=== PATIENT | male | born 1965 | race Caucasian/White ===

== ENCOUNTER 2017-07-05 21:02 | Inpatient (IN) | payer BC ==
[2017-07-05 21:51] LABS: ABS Basophils 0.2 10^3/ul (0-0.2); ABS Eosinophils 0.4 10^3/ul (0-0.6); ABS Monocytes 2.2 10^3/ul (0-0.8); ABS Neutrophils 16.8 10^3/ul (1.5-7.7); ABS Nucleated RBC 0.01 10^3/ul; Eosinophil % 1.7 % (0-6); Hematocrit 42 % (42-52); Hemoglobin 14.8 g/dl (14.0-18.0); Lymphocyte % 16.9 % (25-47); Mean Corpuscular HGB Conc 36 g/dl (31-36); Mean Corpuscular Hemoglobin 30 pg (27-31); Mean Corpuscular Volume 85 fL (80-94); Mean Platelet Volume 7 um3 (7.4-10.4); Nucleated Red Blood Cells % 0.1; Platelet Count 514 10^3/ul (150-450); Red Blood Count 4.91 10^6/ul (4.0-5.4); Red Cell Distribution Width 14 % (10.5-15); White Blood Count 23.7 10^3/ul (3.5-10.8)
[2017-07-06] MEDS ORDERED: Ondansetron INJ* 2 MG/ML VIAL IV ONE ×3 (00:04→00:17)
[2017-07-06] MEDS ORDERED: HYDROmorphone INJ* 2 MG/ML CARPUJECT SYRINGE IV SLOW PU ONE ×2 (00:04→01:46)
[2017-07-06] MEDS ORDERED: NS 0.9% 1000 ML* 2,000 ML IV ONE (00:09)
[2017-07-06] MEDS ORDERED: Levofloxacin 750 MG IVPREMIX(* 750 MG/150 ML BAG IVPB ONE (00:11)
[2017-07-06] MEDS ORDERED: metroNIDAZOLE IV 500 MG/100ML* 500 MG/100 ML BAG IVPB ONE (00:12)
[2017-07-06] MEDS ORDERED: Iodixanol* (CONTRAST) 320 MG/ML 100 ML SDV IV ONE (01:31)
[2017-07-06] MEDS ORDERED: Potassium Chlor TAB* 20 MEQ TAB.ER PO ONE (01:47)
[2017-07-06] MEDS ORDERED: HYDROmorphone INJ* 1 MG/ML CARPUJECT SYRINGE ONE (01:48)
[2017-07-06] MEDS ORDERED: HYDROmorphone INJ* 1 MG/ML CARPUJECT SYRINGE IV SLOW PU ONE (01:49)
[2017-07-06] MEDS ORDERED: Metoclopramide IV* 5 MG/ML 2 ML VIAL IV SLOW PU ONE (02:01)
[2017-07-06] MEDS ORDERED: diPHENhydraMINE IV* 50 MG/ML 1 ml VIAL (BENADRYL) IV ONE (02:01)
[2017-07-06] MEDS ORDERED: diPHENhydraMINE IV* 50 MG/ML 1 ml VIAL (BENADRYL) ONE (02:02)
[2017-07-06] MEDS ORDERED: Metoclopramide IV* 5 MG/ML 2 ML VIAL ONE (02:02)
[2017-07-06] MEDS: HYDROmorphone PCA* 20 MG/20 ML PCA.SYRING PCA SCH (04:08)
--- NOTE | 2017-07-06 04:29 | ED ---
Darrian Nuno Gabriel, scribed for Yuliana Garsia MD on 07/06/17 at 0011 . Abdominal Pain/Male - HPI Summary HPI Summary: This patient is a 52 year old M presenting to [facility] accompanied by his twin brother with a chief complaint of ABD pain since 2 days ago that is worse tonight. The patient rates the pain 10/10 in severity. Symptoms aggravated by movement. Patient reports n/v. Patient states he has had no urine output for 2 hours. His blood glucose is 231. - History of Current Complaint Chief Complaint: EDAbdPain Stated Complaint: ABD PAIN Time Seen by Provider: 07/05/17 23:55 Hx Obtained From: Patient Onset/Duration: Lasting Days - 2, Still Present Timing: Constant Severity Initially: Severe Severity Currently: Severe Pain Intensity: 10 Pain Scale Used: 0-10 Numeric Location: Diffuse Radiates: No - Allergies/Home Medications Allergies/Adverse Reactions: Allergies Allergy/AdvReac Type Severity Reaction Status Date / Time Penicillins Allergy Unknown Verified 07/05/17 21:31 Reaction Details PMH/Surg Hx/FS Hx/Imm Hx Respiratory History: Denies: Hx Chronic Obstructive Pulmonary Disease (COPD) GI History: Denies: Hx Cirrhosis History: Denies: Hx Acute Renal Failure Musculoskeletal History: Denies: Hx Arthritis Sensory History: Reports: Hx Contacts or Glasses Opthamlomology History: Reports: Hx Contacts or Glasses Neurological History: Denies: Hx CVA, Hx Dementia Infectious Disease History: No Infectious Disease History: Denies: Traveled Outside the [place] in Last 30 Days - Family History Known Family History: Negative: Hypertension Review of Systems Negative: Fever Positive: Abdominal Pain, Vomiting, Nausea Negative: Slurred Speech All Other Systems Reviewed And Are Negative: Yes Physical Exam - Summary Physical Exam Summary: VITAL SIGNS: Reviewed. GENERAL: Patient is a well-developed and nourished male who is lying comfortable in the stretcher. Patient is not in any acute respiratory distress. HEAD AND FACE: No signs of trauma. No ecchymosis, hematomas or skull depressions. No sinus tenderness. EYES: PERRLA, EOMI x 2, No injected conjunctiva, no nystagmus. EARS: Hearing grossly intact. Ear canals and tympanic membranes are within normal limits. MOUTH: Oropharynx within normal limits. NECK: Supple, trachea is midline, no adenopathy, no JVD, no carotid bruit, no c- spine tenderness, neck with full ROM. CHEST: Symmetric, no tenderness at palpation LUNGS: Clear to auscultation bilaterally. No wheezing or crackles. CVS: Regular rate and rhythm, S1 and S2 present, no murmurs or gallops appreciated. ABDOMEN: Soft, diffuse abdominal tednerness. No signs of distention. No rebound no guarding, and no masses palpated. Bowel sounds are normal. EXTREMITIES: FROM in all major joints, no edema, no cyanosis or clubbing. NEURO: Alert and oriented x 3. No acute neurological deficits. Speech is normal and follows commands. SKIN: Dry and warm Triage Information Reviewed: Yes Vital Signs On Initial Exam: Initial Vitals Temp Pulse Resp BP Pulse Ox 97.6 F 88 20 167/96 96 07/05/17 21:25 07/05/17 21:25 07/05/17 21:25 07/05/17 21:25 07/05/17 21:25 Vital Signs Reviewed: Yes Diagnostics - Vital Signs Vital Signs Temp Pulse Resp BP Pulse Ox 07/05/17 23:25 97.4 F 86 20 155/100 100 07/05/17 21:25 97.6 F 88 20 167/96 96 - Laboratory Lab Results: Lab Results 07/05/17 07/05/17 07/05/17 Range/Units 21:30 21:37 21:37 WBC 23.7 H (3.5-10.8) 10^3/ul RBC 4.91 (4.0-5.4) 10^6/ul Hgb 14.8 (14.0-18.0) g/dl Hct 42 (42-52) % MCV 85 (80-94) fL MCH 30 (27-31) pg MCHC 36 (31-36) g/dl RDW 14 (10.5-15) % Plt Count 514 H (150-450) 10^3/ul MPV 7 L (7.4-10.4) um3 Neut % (Auto) 71.1 (38-83) % Lymph % (Auto) 16.9 L (25-47) % [place] % (Auto) 9.3 H (1-9) % Eos % (Auto) 1.7 (0-6) % Baso % (Auto) 1.0 (0-2) % Absolute Neuts (auto) 16.8 H (1.5-7.7) 10^3/ul Absolute Lymphs (auto) 4.0 (1.0-4.8) 10^3/ul Absolute Monos (auto) 2.2 H (0-0.8) 10^3/ul Absolute Eos (auto) 0.4 (0-0.6) 10^3/ul Absolute Basos (auto) 0.2 (0-0.2) 10^3/ul Absolute Nucleated RBC 0.01 10^3/ul Nucleated RBC % 0.1 Sodium 134 (133-145) mmol/L Potassium 3.2 L (3.5-5.0) mmol/L Chloride 98 L (101-111) mmol/L Carbon Dioxide 25 (22-32) mmol/L Anion Gap 11 (2-11) mmol/L BUN 26 H (6-24) mg/dL Creatinine 1.15 (0.67-1.17) mg/dL Est GFR ( Amer) 86.2 (>60) Est GFR (Non-Af Amer) 67.0 (>60) BUN/Creatinine Ratio 22.6 H (8-20) Glucose 249 H (70-100) mg/dL POC Glucose (mg/dL) 231 H (70-100) mg/dL Calcium 9.6 (8.6-10.3) mg/dL Total Bilirubin 0.30 (0.2-1.0) mg/dL AST 26 (13-39) U/L ALT 35 (7-52) U/L Alkaline Phosphatase 89 (34-104) U/L C-Reactive Protein 17.79 H (< 5.00) mg/L Total Protein 7.1 (6.4-8.9) g/dL Albumin 4.5 (3.2-5.2) g/dL Globulin 2.6 (2-4) g/dL Albumin/Globulin Ratio 1.7 (1-3) Lipase 4162 H (11.0-82.0) U/L Result Diagrams: 07/05/17 21:37 07/05/17 21:37 Lab Statement: Any lab studies that have been ordered have been reviewed, and results considered in the medical decision making process. - Radiology CXR Radiology Interpretation Completed By: ED Physician - no acute disease - CT CT ABD/Pelvis CT Interpretation Completed By: Radiologist - retroperitoneal edema and pelvic fluid possibly related to pancreatitis or enteritis. Correlation with laboratory values associated with pancreatitis is recommended. ED physician has reviewed this report Abdominal Pain Fem Course/Dx - Course Assessment/Plan: This patient is a 52 year old M presenting to [facility] accompanied by his twin brother with a chief complaint of ABD pain since 2 days ago that is worse tonight. The patient rates the pain 10/10 in severity. Symptoms aggravated by movement. Patient reports n/v. Patient states he has had no urine output for 2 hours. His blood glucose is 231. CXR reveals no acute disease. CT ABD pelvis retroperitoneal edema and pelvic fluid possibly related to pancreatitis or enteritis. Correlation with laboratory values associated with pancreatitis is recommended. Test results with no significant abnormalities. We discussed patient care with Dr. Mari and he has agreed to admit the patient. The patient is agreeable with this plan. - Diagnoses Provider Diagnoses: Pancreatitis - Provider Notifications Discussed Care Of Patient With: Deshawn Mari Time Discussed With Above Provider: 04:15 Instructed by Provider To: Admit As Inpatient Discharge - Discharge Plan Condition: Fair Disposition: ADMITTED TO [facility] The documentation as recorded by the Darrian hernandez Gabriel accurately reflects the service I personally performed and the decisions made by , Yuliana Garsia MD.
[2017-07-06 05:20] LABS: Urine Appearance Clear; Urine Blood 1+ (Negative); Urine Color Yellow; Urine Ketones 1+ (Negative); Urine Protein 2+(100 mg/dL) (Negative); Urine Specific Gravity 1.054 (1.010-1.030); Urine Urobilinogen Negative (Negative)
[2017-07-06] MEDS ORDERED: Acetaminophen SUPP* 650 MG SUPP PR PRN (05:49)
[2017-07-06] MEDS ORDERED: LORazepam INJ* 2 MG/ML 1 ML VIAL IV PRN (05:54)
[2017-07-06] MEDS ORDERED: hydrALAZINE IV* 20 MG/ML VIAL IV PRN (05:54)
--- NOTE | 2017-07-06 05:56 | HP ---
H&P (Free Text) History and Physical: PCP: Vicky Joe MD Date/Time: 07/06/2017 0050 CC: abdominal pain HPI: Mr Blandon is a 52YO obese male HX DM2, HTN, & HLD presenting with onset of mild LUQ pain ('twinge') 3 days ago which persisted, rapidly becoming severe focused in the epigastrum yesterday evening around 2030 prompting presentation for evaluation. Yesterday he also developed diarrhea in the morning which has since resolved. This evening he developed N/V. There has been no black/bloody content to either emesis or stool. He has had some SOB and sweats, but no chest pain, F/C, cough, congestion, change in activity/habits, or other issues. Pain is increased with movement, deep inspiration, & palpation. IV pain meds have helped some. Evaluation is notable for a lipase >4k & CT findings consistent with acute pancreatitis. He denies alcohol consumption. PMedHx DM2 HTN HLD ADD GERD bipolar depression Ambulatory Orders Nursing to reconcile. Amphetamine MIXED SALTS TAB* [Adderall TAB*] 10 mg PO DAILY 09/27/14 Aspirin Low Dose CHEW TAB* [Aspirin Low Dose TAB*] 81 mg PO DAILY 09/27/14 Dextroamphetamine (NF) TAB [Dexedrine TAB*] 5 mg PO 09/27/[address] TAB(*) [Bonilla TIAN(*)] 500 mg PO BID 09/27/[address] TAB(*) [[place]illa TIAN(*)] 500 mg PO BID 09/27/14 Hydrochlorothiazide TAB* [Hydrodiuril TAB*] 25 mg PO DAILY 09/27/14 Lisinopril TAB* [Prinivil TAB*] 40 mg PO DAILY 09/27/14 Naproxen Sodium [Aleve] 220 mg PO Q12HR PRN 09/27/14 Omeprazole CAP* [PriLOSEC CAP*] 40 mg PO QAM 09/27/14 Pen [place] 31GX5/16" 31G X 8 mm 09/27/14 Pravastatin (NF) [Pravachol (NF)] 40 mg PO BEDTIME 09/27/14 Sertraline* [Zoloft*] 25 mg PO DAILY 09/27/14 Sertraline* [Zoloft*] 100 mg PO DAILY 09/27/14 SitaGLIPtin (NF) [Januvia (NF)] 100 mg PO DAILY 09/27/14 Zolpidem TAB* [Ambien TAB*] 10 mg PO BEDTIME PRN 09/27/14 amLODIPine TAB* [Norvasc TAB*] 10 mg PO DAILY 09/27/14 metFORMIN* [Glucophage*] 1,000 mg PO 0800,1700 09/27/14 zzInsulin GLARGINE(*) [Lantus(*)] 62 units SUBCUT QAM 09/27/14 Allergies Penicillins Allergy (Verified 07/05/17 21:31) Unknown Reaction Details PSurgHx denies SocHx: no tobacco, alcohol, or recreational drugs; lives with his brother; works for [employer]; full code status FamHx: Mother: passed at 32YO 2nd hepatic failure ('complications of jaundice') of unknown cause; Father: passed at 72 of complications of alcoholism; Sister: DM2; Brother: DM2, HTN, HLD, & BPH ROS: as above, otherwise reviewed and all were negative vitals: Vital Signs Temp 36.8 C 07/06/17 03:15 Pulse 104 07/06/17 04:19 Resp 20 07/06/17 04:56 BP 175/92 07/06/17 04:19 Pulse Ox 96 07/06/17 04:56 Intake & Output 07/05/17 07/05/17 07/06/17 11:59 23:59 11:59 Intake Total 2200 Balance 220 Weight 87.997 kg 85.729 kg Intake: IV Fluids 2199 Constitutional: NAD, normally developed, obese white male HEENM: atraumatic; sclera/conjunctiva: anicteric/clear; hearing: clinically intact; oropharynx: clear, mucosa moist Neck: soft tissue: non-tender; thyroid: normal Pulmonary: clear to auscultation bilaterally, good aeration, no accessory muscle use CV: RR/RR, normal S1S2, no carotid bruit, no jugular venous distention, 2+ B DP/ PT, no edema Abdominal: soft, mildly distended, markedly tender worst in epigastrum with voluntary guarding but no rebound/rigidity, normoactive bowel sounds, no hepatosplenomegaly or masses, no costovertebral angle tenderness Musculoskeletal: general: grossly intact, no tenderness with palpation Integumental: normal appearance and texture of exposed skin Psychiatric orientation: AA&O to PPS affect: severe pain mood: cooperative eye contact: poor to fair content: reliable memory: intact responses: timely to slightly slowed insight: good Testing: Lab Results 07/05/17 07/05/17 07/05/17 Range/Units 21:30 21:37 21:37 WBC 23.7 H (3.5-10.8) 10^3/ul RBC 4.91 (4.0-5.4) 10^6/ul Hgb 14.8 (14.0-18.0) g/dl Hct 42 (42-52) % MCV 85 (80-94) fL MCH 30 (27-31) pg MCHC 36 (31-36) g/dl RDW 14 (10.5-15) % Plt Count 514 H (150-450) 10^3/ul MPV 7 L (7.4-10.4) um3 Neut % (Auto) 71.1 (38-83) % Lymph % (Auto) 16.9 L (25-47) % [place] % (Auto) 9.3 H (1-9) % Eos % (Auto) 1.7 (0-6) % Baso % (Auto) 1.0 (0-2) % Absolute Neuts (auto) 16.8 H (1.5-7.7) 10^3/ul Absolute Lymphs (auto) 4.0 (1.0-4.8) 10^3/ul Absolute Monos (auto) 2.2 H (0-0.8) 10^3/ul Absolute Eos (auto) 0.4 (0-0.6) 10^3/ul Absolute Basos (auto) 0.2 (0-0.2) 10^3/ul Absolute Nucleated RBC 0.01 10^3/ul Nucleated RBC % 0.1 Sodium 134 (133-145) mmol/L Potassium 3.2 L (3.5-5.0) mmol/L Chloride 98 L (101-111) mmol/L Carbon Dioxide 25 (22-32) mmol/L Anion Gap 11 (2-11) mmol/L BUN 26 H (6-24) mg/dL Creatinine 1.15 (0.67-1.17) mg/dL Est GFR ( Amer) 86.2 (>60) Est GFR (Non-Af Amer) 67.0 (>60) BUN/Creatinine Ratio 22.6 H (8-20) Glucose 249 H (70-100) mg/dL POC Glucose (mg/dL) 231 H (70-100) mg/dL Calcium 9.6 (8.6-10.3) mg/dL Total Bilirubin 0.30 (0.2-1.0) mg/dL AST 26 (13-39) U/L ALT 35 (7-52) U/L Alkaline Phosphatase 89 (34-104) U/L C-Reactive Protein 17.79 H (< 5.00) mg/L Total Protein 7.1 (6.4-8.9) g/dL Albumin 4.5 (3.2-5.2) g/dL Globulin 2.6 (2-4) g/dL Albumin/Globulin Ratio 1.7 (1-3) Amylase 1385 H (29-103) U/L Lipase 4162 H (11.0-82.0) U/L Urine Color Urine Appearance Urine pH (5-9) Ur Specific [place] (1.010-1.030) Urine Protein (Negative) Urine Ketones (Negative) Urine Blood (Negative) Urine Nitrate (Negative) Urine Bilirubin (Negative) Urine Urobilinogen (Negative) Ur Leukocyte Esterase (Negative) Urine WBC (Auto) (Absent) Urine RBC (Auto) (Absent) Urine Bacteria (Absent) Urine Glucose (Negative) 07/06/17 Range/Units 04:50 WBC (3.5-10.8) 10^3/ul RBC (4.0-5.4) 10^6/ul Hgb (14.0-18.0) g/dl Hct (42-52) % MCV (80-94) fL MCH (27-31) pg MCHC (31-36) g/dl RDW (10.5-15) % Plt Count (150-450) 10^3/ul MPV (7.4-10.4) um3 Neut % (Auto) (38-83) % Lymph % (Auto) (25-47) % [place] % (Auto) (1-9) % Eos % (Auto) (0-6) % Baso % (Auto) (0-2) % Absolute Neuts (auto) (1.5-7.7) 10^3/ul Absolute Lymphs (auto) (1.0-4.8) 10^3/ul Absolute Monos (auto) (0-0.8) 10^3/ul Absolute Eos (auto) (0-0.6) 10^3/ul Absolute Basos (auto) (0-0.2) 10^3/ul Absolute Nucleated RBC 10^3/ul Nucleated RBC % Sodium (133-145) mmol/L Potassium (3.5-5.0) mmol/L Chloride (101-111) mmol/L Carbon Dioxide (22-32) mmol/L Anion Gap (2-11) mmol/L BUN (6-24) mg/dL Creatinine (0.67-1.17) mg/dL Est GFR ( Amer) (>60) Est GFR (Non-Af Amer) (>60) BUN/Creatinine Ratio (8-20) Glucose (70-100) mg/dL POC Glucose (mg/dL) (70-100) mg/dL Calcium (8.6-10.3) mg/dL Total Bilirubin (0.2-1.0) mg/dL AST (13-39) U/L ALT (7-52) U/L Alkaline Phosphatase (34-104) U/L C-Reactive Protein (< 5.00) mg/L Total Protein (6.4-8.9) g/dL Albumin (3.2-5.2) g/dL Globulin (2-4) g/dL Albumin/Globulin Ratio (1-3) Amylase (29-103) U/L Lipase (11.0-82.0) U/L Urine Color Yellow Urine Appearance Clear Urine pH 6.0 (5-9) Ur Specific [place] 1.054 H (1.010-1.030) Urine Protein 2+(100 mg/dl) H (Negative) Urine Ketones 1+ H (Negative) Urine Blood 1+ H (Negative) Urine Nitrate Negative (Negative) Urine Bilirubin Negative (Negative) Urine Urobilinogen Negative (Negative) Ur Leukocyte Esterase Negative (Negative) Urine WBC (Auto) Absent (Absent) Urine RBC (Auto) 1+(3-5/hpf) H (Absent) Urine Bacteria Absent (Absent) Urine Glucose 3+(>=500 mg/dl) H (Negative) CXR, personally reviewed: no acute process CT abd/pel W, personally reviewed: IMPRESSION: Retroperitoneal edema and pelvic fluid possibly related to pancreatitis or enteritis. Correlation with laboratory values associated with pancreatitis recommended. 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 : consider psychiatry consult in AM for advice on changing divalproex to another bipolar medication : trend lipase : zuniga to gravity for accurate monitoring of renal function & fluid balance : repeat CT abdomen WO in 36-48h to evaluate for pseudocyst formation/necrosis : supplemental oxygen : incentive spirometry : supportive care hypoKalemia : replace & recheck Secondary DM2 : hold metformin & sitaglipten : check A1c : NPO as above : Q4H glucometry : basal/correctional insulin HTN : hold oral anti-hypertensives for now : IV hydralazine PRN : monitor HLD : hold statin for now ADD : hold Adderall for now GERD : IV pantorazole bipolar : D/C divalproex 2nd association w/ pancreatitis : consider psychiatry consult in AM for assistance changing meds depression : hold sertraline for now Admission Rational: inpatient for acute pancreatitis not anticipated to be adequately improved w/i 48h to allow for discharge DVTp: SCDs & heparin SQ Code Status: full HCP: brother
[2017-07-06] MEDS ORDERED: NS 0.9% 1000 ML* 1,000 ML IV SCH ×2 (06:00→21:15)
[2017-07-06] MEDS ORDERED: KCL 20 MEQ/100 ML IVPREMIX* 20 MEQ/100 ML BAG IV SCH (06:00)
[2017-07-06 07:01] LABS: ABS Basophils 0 10^3/ul (0-0.2); ABS Eosinophils 0 10^3/ul (0-0.6); ABS Lymphocytes 0.5 10^3/ul (1.0-4.8); ABS Monocytes 1.2 10^3/ul (0-0.8); ABS Neutrophils 13.8 10^3/ul (1.5-7.7); ABS Nucleated RBC 0.01 10^3/ul; Eosinophil % 0 % (0-6); Hematocrit 44 % (42-52); Hemoglobin 15.2 g/dl (14.0-18.0); Lymphocyte % 3.5 % (25-47); Mean Corpuscular HGB Conc 35 g/dl (31-36); Mean Corpuscular Hemoglobin 30 pg (27-31); Mean Corpuscular Volume 87 fL (80-94); Mean Platelet Volume 8 um3 (7.4-10.4); Nucleated Red Blood Cells % 0; Platelet Count 376 10^3/ul (150-450); Red Blood Count 5.03 10^6/ul (4.0-5.4); Red Cell Distribution Width 14 % (10.5-15); White Blood Count 15.6 10^3/ul (3.5-10.8)
[2017-07-06] MEDS: Insulin LISPRO* 1 UNITS UNIT SUBCUT SCH ×5 (07:47→22:22)
--- NOTE | 2017-07-06 07:51 | RAD ---
HISTORY: Abdominal pain COMPARISONS: None VIEWS: 1: frontal portable view of the chest at 12:20 AM FINDINGS: LINES AND TUBES: None. CARDIOMEDIASTINAL SILHOUETTE: The cardiomediastinal silhouette is normal for portable technique. PLEURA: The costophrenic angles are sharp. No pleural abnormalities are noted. LUNG PARENCHYMA: The lungs are clear. ABDOMEN: The upper abdomen is clear. There is no subphrenic gas. BONES AND SOFT TISSUES: No bone or soft tissue abnormalities are noted. IMPRESSION: NO ACTIVE CARDIOPULMONARY DISEASE.
--- NOTE | 2017-07-06 08:02 | RAD ---
CLINICAL HISTORY: Abdominal pain COMPARISON: None TECHNIQUE: Multiple contiguous axial CT scans were obtained of the abdomen and pelvis after the administration of intravenous contrast. Coronal and sagittal multiplanar reformations are submitted for review. Oral contrast was not administered. Delayed images were obtained through the abdomen and pelvis. FINDINGS: LUNG BASES: The lung bases are clear. LIVER: The liver is diffusely low in attenuation compared to the spleen. There are no focal hepatic parenchymal masses. Liver measures 23.2 cm in long axis. BILE DUCTS: There is no intrahepatic or extrahepatic biliary dilatation. GALLBLADDER: The gallbladder is normal, without pericholecystic inflammatory change. PANCREAS: There is stranding of the peripancreatic fat predominantly involving the tail of the pancreas with fluid along the anterior pararenal fascia on the left. SPLEEN: The spleen is at the upper limits of normal in size. UPPER GI TRACT: Evaluation of the gastrointestinal tract is limited by incomplete gastric distention. There is mild dilatation of the distal duodenum and proximal jejunum along the pancreas. SMALL BOWEL AND MESENTERY: The small bowel is normal in contour, course, and caliber. There is no obstruction or dilatation. COLON: The colon is normal in contour, course, caliber. There is no pericolonic inflammatory change. ADRENALS: Normal bilaterally. KIDNEYS: The kidneys are normal in shape, size, contour, and axis. There is no hydronephrosis or nephrolithiasis. BLADDER: The bladder is smooth in contour. PELVIC ORGANS: The prostate gland is normal. The seminal vesicles are symmetric. AORTA: The aorta is normal. IVC: Unremarkable LYMPH NODES: There is no lymphadenopathy by size criteria. ABDOMINAL WALL: There is no evidence for abdominal wall hernia. BONES AND SOFT TISSUES: Mild degenerative changes are noted most now set L5-S1 OTHER: There is a small amount of ascites. IMPRESSION: 1. PERIPANCREATIC FLUID AND INFLAMMATORY CHANGE MOST CONSISTENT WITH ACUTE PANCREATITIS. 2. THERE IS MILD DILATATION OF THE DUODENUM AND PROXIMAL SMALL BOWEL ALONG THE PANCREAS SUGGESTIVE OF FOCAL ILEUS. 3. HEPATOMEGALY WITH FATTY INFILTRATION OF THE LIVER. 4. A SMALL AMOUNT OF ASCITES.
[2017-07-06] MEDS: KCL 10 MEQ/50 ML IVPREMIX* 20 MEQ/100 ML BAG IV SCH ×2 (08:07→09:32)
[2017-07-06] MEDS ORDERED: Influenza VAC *QUAD* 2017-18* 0.5 ML SYRINGE IM ONE (09:00)
[2017-07-06] MEDS ORDERED: Pneumococcal *Vac Polyvalent 0.5 ML VIAL IM ONE (09:00)
[2017-07-06] MEDS: Pantoprazole IV* 40 MG IV SCH (09:51)
--- NOTE | 2017-07-06 10:44 | RAD ---
HISTORY: Acute pancreatitis, evaluate for gallstone COMPARISONS: CT dated July 06, 2009 TECHNIQUE: Multiple transverse and longitudinal ultrasound images were obtained of the right upper quadrant of the abdomen using grayscale and color Doppler imaging. FINDINGS: The study is limited by patient bowel gas. LIVER: The liver is diffusely echogenic and coarse in echotexture, with decreased acoustic transmission. The liver measures 22 cm in long axis. There is normal hepatopedal flow of the portal vein on Doppler imaging. BILIARY TREE: There is no intrahepatic or extrahepatic biliary dilatation. The common duct measures 0.3 cm. GALLBLADDER: The gallbladder is well-visualized. There is no cholelithiasis, gallbladder wall thickening, pericholecystic fluid, or sonographic Martinez sign. PANCREAS: Again noted is peripancreatic fluid. RIGHT KIDNEY: The right kidney is normal in shape, size, contour, and echogenicity. There is no hydronephrosis or nephrolithiasis. The right kidney measures 10.6 x 6.3 x 6 cm. AORTA AND IVC: Evaluation limited by bowel gas. FLUID: There is trace amount of ascites. OTHER FINDINGS: None. IMPRESSION: 1. HEPATOMEGALY WITH FATTY INFILTRATION OF THE LIVER. 2. AGAIN NOTED IS PERIPANCREATIC FLUID CONSISTENT WITH ACUTE PANCREATITIS. 3. NO APPRECIABLE CHOLELITHIASIS
--- NOTE | 2017-07-06 17:37 | PN ---
Hospitalist Progress Note Date of Service: 07/06/17 Pt seen and examined. Acute pancreatitis. Lipase improved. 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 Increased IVF to LR 200cc/hr from NS 150. RUQ US without e/o stones.
[2017-07-06] MEDS ORDERED: Insulin GLARGINE(*) 1 UNITS UNIT SUBCUT SCH (21:00)
[2017-07-07] MEDS: Insulin LISPRO* 1 UNITS UNIT SUBCUT SCH ×6 (02:26→22:35)
[2017-07-07] MEDS: HYDROmorphone PCA* 20 MG/20 ML PCA.SYRING PCA SCH ×3 (03:06→22:15)
[2017-07-07 05:50] LABS: ABS Basophils 0.1 10^3/ul (0-0.2); ABS Eosinophils 0 10^3/ul (0-0.6); ABS Monocytes 3.1 10^3/ul (0-0.8); ABS Nucleated RBC 0.03 10^3/ul; Eosinophil % 0 % (0-6); Hematocrit 42 % (42-52); Hemoglobin 14.4 g/dl (14.0-18.0); Lymphocyte % 4.3 % (25-47); Mean Corpuscular HGB Conc 34 g/dl (31-36); Mean Corpuscular Hemoglobin 30 pg (27-31); Mean Corpuscular Volume 88 fL (80-94); Nucleated Red Blood Cells % 0.1; Red Blood Count 4.83 10^6/ul (4.0-5.4); Red Cell Distribution Width 15 % (10.5-15); White Blood Count 23.1 10^3/ul (3.5-10.8)
[2017-07-07 06:18] LABS: Mean Platelet Volume 8 um3 (7.4-10.4)
[2017-07-07 06:19] LABS: Platelet Count 369 10^3/ul (150-450)
[2017-07-07] MEDS: Pantoprazole IV* 40 MG IV SCH (09:20)
--- NOTE | 2017-07-07 11:16 | PN ---
Subjective Date of Service: 07/07/17 Interval History: pleuritic pain. sharp pain to left middle chest. troponin slowly rising to 0.05 then 0.07 now normal. Attests No abdominal pain unless presses down. Tachy 120s. LR increased overnight. sinus congestion falling asleep. thirsty not hungry. wbc up to 23 again. Tmax 100.9 Objective Active Medications: Acetaminophen (Tylenol Supp*) 650 mg HI Q6H PRN PRN Reason: FEVER/PAIN Hydralazine HCl (Apresoline Iv*) 10 mg IV Q4H PRN PRN Reason: Systolic >170 Last Admin: 07/06/17 07:47 Dose: 10 mg Lactated Ringer's (Lactated Ringers 1000 Ml Bag*) 1,000 mls @ 250 mls/hr IV PER RATE [facility] Last Admin: 07/07/17 10:25 Dose: 250 mls/hr Hydromorphone HCl (Dilaudid Livestock Producer*) 20 mg in 20 mls @ 0 mls/hr HEAD USHER .change Q24H [facility]; Per Protocol PRN Reason: Protocol Last Admin: 07/07/17 10:26 Dose: 0.4 mls/hr Insulin Glargine (Lantus(*)) 21 units 0.24 units/kg (21 units) SUBCUT 2100 [facility] Stop: 07/07/17 20:00 Last Admin: 07/06/17 22:25 Dose: 21 units Insulin Human Lispro (Humalog*) 0 units SUBCUT Q4H [facility] PRN Reason: Protocol Last Admin: 07/07/17 10:32 Dose: 3 units Lorazepam (Ativan Inj*) 1 mg IV BEDTIME PRN PRN Reason: SLEEP Pantoprazole Sodium (Protonix Iv*) 40 mg IV DAILY [facility] Last Admin: 07/07/17 09:20 Dose: 40 mg Vital Signs - 8 hr 07/07/17 07/07/17 07/07/17 04:06 04:41 05:00 Temperature 99.3 F Pulse Rate 134 Respiratory 20 20 20 Rate Blood Pressure 147/83 (mmHg) O2 Sat by Pulse 91 91 Oximetry 07/07/17 07/07/17 07/07/17 07:41 08:46 09:00 Temperature 99.0 F Pulse Rate 134 Respiratory 20 18 Rate Blood Pressure 147/88 (mmHg) O2 Sat by Pulse 93 93 94 Oximetry 07/07/17 10:26 Temperature Pulse Rate Respiratory 20 Rate Blood Pressure (mmHg) O2 Sat by Pulse Oximetry Oxygen Devices in Use Now: Nasal Cannula Appearance: NAD unless deep breath. Neck: NL Appearance and Movements; NL JVP Respiratory: Symmetrical Chest Expansion and Respiratory Effort, Clear to Auscultation, - - shallow breaths Cardiovascular: - - regular tachycardia, no murmurs Abdominal: - - distended, slightly diffusely tender, no guarding or rebound. Extremities: No Edema, No Clubbing, Cyanosis Skin: No Rash or Ulcers, No Nodules or Sclerosis Neurological: Alert and Oriented x 3, NL Sensation, NL Muscle Strength and Tone Result Diagrams: 07/07/17 05:15 07/06/17 06:28 Additional Lab and Data: Laboratory Tests 07/05/17 07/05/17 07/05/17 21:30 21:37 21:37 WBC 23.7 H RBC 4.91 Hgb 14.8 Hct 42 MCV 85 MCH 30 MCHC 36 RDW 14 Plt Count 514 H MPV 7 L Neut % (Auto) 71.1 Lymph % (Auto) 16.9 L [place] % (Auto) 9.3 H Eos % (Auto) 1.7 Baso % (Auto) 1.0 Absolute Neuts (auto) 16.8 H Absolute Lymphs (auto) 4.0 Absolute Monos (auto) 2.2 H Absolute Eos (auto) 0.4 Absolute Basos (auto) 0.2 Absolute Nucleated RBC 0.01 Nucleated RBC % 0.1 Sodium 134 Potassium 3.2 L Chloride 98 L Carbon Dioxide 25 Anion Gap 11 BUN 26 H Creatinine 1.15 Est GFR ( Amer) 86.2 Est GFR (Non-Af Amer) 67.0 BUN/Creatinine Ratio 22.6 H Glucose 249 H POC Glucose (mg/dL) 231 H Hemoglobin A1c Calcium 9.6 Total Bilirubin 0.30 Direct Bilirubin Indirect Bilirubin AST 26 ALT 35 Alkaline Phosphatase 89 Troponin I C-Reactive Protein 17.79 H Total Protein 7.1 Albumin 4.5 Globulin 2.6 Albumin/Globulin Ratio 1.7 Triglycerides Cholesterol LDL Cholesterol HDL Cholesterol Amylase 1385 H Lipase 4162 H Urine Color Urine Appearance Urine pH Ur Specific [place] Urine Protein Urine Ketones Urine Blood Urine Nitrate Urine Bilirubin Urine Urobilinogen Ur Leukocyte Esterase Urine WBC (Auto) Urine RBC (Auto) Urine Bacteria Urine Glucose 07/05/17 07/06/17 07/06/17 21:37 04:50 06:28 WBC 15.6 H RBC 5.03 Hgb 15.2 Hct 44 MCV 87 MCH 30 MCHC 35 RDW 14 Plt Count 376 MPV 8 Neut % (Auto) 88.5 H Lymph % (Auto) 3.5 L [place] % (Auto) 7.9 Eos % (Auto) 0 Baso % (Auto) 0.1 Absolute Neuts (auto) 13.8 H Absolute Lymphs (auto) 0.5 L Absolute Monos (auto) 1.2 H Absolute Eos (auto) 0 Absolute Basos (auto) 0 Absolute Nucleated RBC 0.01 Nucleated RBC % 0 Sodium Potassium Chloride Carbon Dioxide Anion Gap BUN Creatinine Est GFR ( Amer) Est GFR (Non-Af Amer) BUN/Creatinine Ratio Glucose POC Glucose (mg/dL) Hemoglobin A1c 7.1 H Calcium Total Bilirubin Direct Bilirubin Indirect Bilirubin AST ALT Alkaline Phosphatase Troponin I C-Reactive Protein Total Protein Albumin Globulin Albumin/Globulin Ratio Triglycerides Cholesterol LDL Cholesterol HDL Cholesterol Amylase Lipase Urine Color Yellow Urine Appearance Clear Urine pH 6.0 Ur Specific [place] 1.054 H Urine Protein 2+(100 mg/dl) H Urine Ketones 1+ H Urine Blood 1+ H Urine Nitrate Negative Urine Bilirubin Negative Urine Urobilinogen Negative Ur Leukocyte Esterase Negative Urine WBC (Auto) Absent Urine RBC (Auto) 1+(3-5/hpf) H Urine Bacteria Absent Urine Glucose 3+(>=500 mg/dl) H 07/06/17 07/06/17 07/06/17 06:28 06:28 10:16 WBC RBC Hgb Hct MCV MCH MCHC RDW Plt Count MPV Neut % (Auto) Lymph % (Auto) [place] % (Auto) Eos % (Auto) Baso % (Auto) Absolute Neuts (auto) Absolute Lymphs (auto) Absolute Monos (auto) Absolute Eos (auto) Absolute Basos (auto) Absolute Nucleated RBC Nucleated RBC % Sodium 135 Potassium 4.3 Chloride 102 Carbon Dioxide 22 Anion Gap 11 BUN 24 Creatinine 1.02 Est GFR ( Amer) 99.0 Est GFR (Non-Af Amer) 77.0 BUN/Creatinine Ratio 23.5 H Glucose 316 H POC Glucose (mg/dL) 302 H 305 H Hemoglobin A1c Calcium 8.7 Total Bilirubin 0.40 Direct Bilirubin 0.10 Indirect Bilirubin 0.3 AST 17 ALT 32 Alkaline Phosphatase 75 Troponin I C-Reactive Protein Total Protein 6.6 Albumin 4.1 Globulin 2.5 Albumin/Globulin Ratio 1.6 Triglycerides Cholesterol LDL Cholesterol HDL Cholesterol Amylase Lipase 771 H Urine Color Urine Appearance Urine pH Ur Specific [place] Urine Protein Urine Ketones Urine Blood Urine Nitrate Urine Bilirubin Urine Urobilinogen Ur Leukocyte Esterase Urine WBC (Auto) Urine RBC (Auto) Urine Bacteria Urine Glucose 07/06/17 07/06/17 07/06/17 13:59 17:50 22:07 WBC RBC Hgb Hct MCV MCH MCHC RDW Plt Count MPV Neut % (Auto) Lymph % (Auto) [place] % (Auto) Eos % (Auto) Baso % (Auto) Absolute Neuts (auto) Absolute Lymphs (auto) Absolute Monos (auto) Absolute Eos (auto) Absolute Basos (auto) Absolute Nucleated RBC Nucleated RBC % Sodium Potassium Chloride Carbon Dioxide Anion Gap BUN Creatinine Est GFR ( Amer) Est GFR (Non-Af Amer) BUN/Creatinine Ratio Glucose POC Glucose (mg/dL) 258 H 203 H 194 H Hemoglobin A1c Calcium Total Bilirubin Direct Bilirubin Indirect Bilirubin AST ALT Alkaline Phosphatase Troponin I C-Reactive Protein Total Protein Albumin Globulin Albumin/Globulin Ratio Triglycerides Cholesterol LDL Cholesterol HDL Cholesterol Amylase Lipase Urine Color Urine Appearance Urine pH Ur Specific [place] Urine Protein Urine Ketones Urine Blood Urine Nitrate Urine Bilirubin Urine Urobilinogen Ur Leukocyte Esterase Urine WBC (Auto) Urine RBC (Auto) Urine Bacteria Urine Glucose 07/07/17 07/07/17 07/07/17 02:17 03:32 05:15 WBC RBC Hgb Hct MCV MCH MCHC RDW Plt Count MPV Neut % (Auto) Lymph % (Auto) [place] % (Auto) Eos % (Auto) Baso % (Auto) Absolute Neuts (auto) Absolute Lymphs (auto) Absolute Monos (auto) Absolute Eos (auto) Absolute Basos (auto) Absolute Nucleated RBC Nucleated RBC % Sodium Potassium Chloride Carbon Dioxide Anion Gap BUN Creatinine Est GFR ( Amer) Est GFR (Non-Af Amer) BUN/Creatinine Ratio Glucose POC Glucose (mg/dL) 185 H Hemoglobin A1c Calcium Total Bilirubin Direct Bilirubin Indirect Bilirubin AST ALT Alkaline Phosphatase Troponin I 0.02 0.04 H* C-Reactive Protein Total Protein Albumin Globulin Albumin/Globulin Ratio Triglycerides 105 Cholesterol 105 LDL Cholesterol 59 HDL Cholesterol 24.6 Amylase Lipase Urine Color Urine Appearance Urine pH Ur Specific [place] Urine Protein Urine Ketones Urine Blood Urine Nitrate Urine Bilirubin Urine Urobilinogen Ur Leukocyte Esterase Urine WBC (Auto) Urine RBC (Auto) Urine Bacteria Urine Glucose 07/07/17 07/07/17 07/07/17 05:15 06:05 09:33 WBC 23.1 H RBC 4.83 Hgb 14.4 Hct 42 MCV 88 MCH 30 MCHC 34 RDW 15 Plt Count 369 MPV 8 Neut % (Auto) 82.2 Lymph % (Auto) 4.3 L [place] % (Auto) 13.2 H Eos % (Auto) 0 Baso % (Auto) 0.3 Absolute Neuts (auto) 19.0 H Absolute Lymphs (auto) 1.0 Absolute Monos (auto) 3.1 H Absolute Eos (auto) 0 Absolute Basos (auto) 0.1 Absolute Nucleated RBC 0.03 Nucleated RBC % 0.1 Sodium Potassium Chloride Carbon Dioxide Anion Gap BUN Creatinine Est GFR ( Amer) Est GFR (Non-Af Amer) BUN/Creatinine Ratio Glucose POC Glucose (mg/dL) 175 H Hemoglobin A1c Calcium Total Bilirubin Direct Bilirubin Indirect Bilirubin AST ALT Alkaline Phosphatase Troponin I 0.05 H* C-Reactive Protein Total Protein Albumin Globulin Albumin/Globulin Ratio Triglycerides Cholesterol LDL Cholesterol HDL Cholesterol Amylase Lipase Urine Color Urine Appearance Urine pH Ur Specific [place] Urine Protein Urine Ketones Urine Blood Urine Nitrate Urine Bilirubin Urine Urobilinogen Ur Leukocyte Esterase Urine WBC (Auto) Urine RBC (Auto) Urine Bacteria Urine Glucose 07/07/17 07/07/17 07/07/17 09:40 13:38 14:42 WBC RBC Hgb Hct MCV MCH MCHC RDW Plt Count MPV Neut % (Auto) Lymph % (Auto) [place] % (Auto) Eos % (Auto) Baso % (Auto) Absolute Neuts (auto) Absolute Lymphs (auto) Absolute Monos (auto) Absolute Eos (auto) Absolute Basos (auto) Absolute Nucleated RBC Nucleated RBC % Sodium Potassium Chloride Carbon Dioxide Anion Gap BUN Creatinine Est GFR ( Amer) Est GFR (Non-Af Amer) BUN/Creatinine Ratio Glucose POC Glucose (mg/dL) 158 H 163 H Hemoglobin A1c Calcium Total Bilirubin Direct Bilirubin Indirect Bilirubin AST ALT Alkaline Phosphatase Troponin I 0.07 H* C-Reactive Protein Total Protein Albumin Globulin Albumin/Globulin Ratio Triglycerides Cholesterol LDL Cholesterol HDL Cholesterol Amylase Lipase Urine Color Urine Appearance Urine pH Ur Specific [place] Urine Protein Urine Ketones Urine Blood Urine Nitrate Urine Bilirubin Urine Urobilinogen Ur Leukocyte Esterase Urine WBC (Auto) Urine RBC (Auto) Urine Bacteria Urine Glucose 07/07/17 07/07/17 18:09 18:19 WBC RBC Hgb Hct MCV MCH MCHC RDW Plt Count MPV Neut % (Auto) Lymph % (Auto) [place] % (Auto) Eos % (Auto) Baso % (Auto) Absolute Neuts (auto) Absolute Lymphs (auto) Absolute Monos (auto) Absolute Eos (auto) Absolute Basos (auto) Absolute Nucleated RBC Nucleated RBC % Sodium Potassium Chloride Carbon Dioxide Anion Gap BUN Creatinine Est GFR ( Amer) Est GFR (Non-Af Amer) BUN/Creatinine Ratio Glucose POC Glucose (mg/dL) 236 H Hemoglobin A1c Calcium Total Bilirubin Direct Bilirubin Indirect Bilirubin AST ALT Alkaline Phosphatase Troponin I 0.01 C-Reactive Protein Total Protein Albumin Globulin Albumin/Globulin Ratio Triglycerides Cholesterol LDL Cholesterol HDL Cholesterol Amylase Lipase Urine Color Urine Appearance Urine pH Ur Specific [place] Urine Protein Urine Ketones Urine Blood Urine Nitrate Urine Bilirubin Urine Urobilinogen Ur Leukocyte Esterase Urine WBC (Auto) Urine RBC (Auto) Urine Bacteria Urine Glucose Assess/Plan/Problems-Billing Assessment: 52 yo male PMH bipolar disorder on valproate, HLD p/w acute pancreatitis, likely 2/2 to valproate. Lipids wnl. IgG/CHRIS pending. 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 - dilaudid computer security specialist, consider wean tomorrow as abd pain has improved (for this provider, though not always on RN report) - is on continuous pulse ox and telemetry. #Bipolar - hold valproate - consider psych consult for alternative therapy #HLD - continue CODE: FULL Status and Disposition: medicine inpatient. Attending: Rhys Rivera
[2017-07-08] MEDS: Insulin LISPRO* 1 UNITS UNIT SUBCUT SCH ×6 (02:20→21:51)
[2017-07-08] MEDS ORDERED: Acetaminophen TAB* 325 MG PO PRN (04:39)
[2017-07-08 09:21] LABS: Hematocrit 38 % (42-52); Hemoglobin 12.9 g/dl (14.0-18.0); Mean Corpuscular HGB Conc 34 g/dl (31-36); Mean Corpuscular Hemoglobin 30 pg (27-31); Mean Corpuscular Volume 88 fL (80-94); Mean Platelet Volume 8 um3 (7.4-10.4); Platelet Count 348 10^3/ul (150-450); Red Cell Distribution Width 15 % (10.5-15); White Blood Count 21.2 10^3/ul (3.5-10.8)
[2017-07-08 09:33] LABS: EGFR Non-African American 71.3 (>60)
[2017-07-08] MEDS: Pantoprazole IV* 40 MG IV SCH (09:43)
[2017-07-08 09:48] LABS: ABS Basophils 0.1 10^3/ul (0-0.2); ABS Eosinophils 0.1 10^3/ul (0-0.6); ABS Lymphocytes 1.4 10^3/ul (1.0-4.8); ABS Neutrophils 17.6 10^3/ul (1.5-7.7); ABS Nucleated RBC 0 10^3/ul; Eosinophil % 0.5 % (0-6); Lymphocyte % 6.7 % (25-47); Nucleated Red Blood Cells % 0
[2017-07-08] MEDS ORDERED: HYDROmorphone PCA* 20 MG/20 ML PCA.SYRING PCA SCH (16:15)
--- NOTE | 2017-07-08 16:21 | PN ---
Subjective Date of Service: 07/08/17 Interval History: Pain L abd. No new c/o. Objective Active Medications: Acetaminophen (Tylenol Tab*) 650 mg PO Q6H PRN PRN Reason: FEVER/PAIN Divalproex Sodium (Depakote Dr Tab(*)) 500 mg PO BID [facility] Hydralazine HCl (Apresoline Iv*) 10 mg IV Q4H PRN PRN Reason: Systolic >170 Last Admin: 07/06/17 07:47 Dose: 10 mg Lactated Ringer's (Lactated Ringers 1000 Ml Bag*) 1,000 mls @ 0 mls/hr IV PER RATE [facility] PRN Reason: KVO Last Admin: 07/08/17 06:21 Dose: 250 mls/hr Hydromorphone HCl (Dilaudid [employer]*) 20 mg in 20 mls @ 0 mls/hr [employer] .change Q24H [facility]; Per Protocol PRN Reason: Protocol Last Admin: 07/07/17 22:15 Dose: 0.4 mls/hr Potassium Chloride/Dextrose (D5w 1/2 Ns Kcl 20 Meq 1000 Ml*) 1,000 mls @ 100 mls/hr IV PER RATE [facility] Insulin Human Lispro (Humalog*) 0 units SUBCUT Q4H [facility] PRN Reason: Protocol Last Admin: 07/08/17 14:35 Dose: 9 units Lorazepam (Ativan Inj*) 1 mg IV BEDTIME PRN PRN Reason: SLEEP Non-Formulary Medication (Trifluoperazine Hcl [Trifluoperazine Hcl]) 5 mg PO DAILY [facility] Pantoprazole Sodium (Protonix Iv*) 40 mg IV DAILY [facility] Last Admin: 07/08/17 09:43 Dose: 40 mg Vital Signs - 8 hr 07/08/17 07/08/17 07/08/17 09:00 11:45 13:00 Temperature 98.5 F Pulse Rate 124 Respiratory 22 20 22 Rate Blood Pressure 155/85 (mmHg) O2 Sat by Pulse 94 96 94 Oximetry Oxygen Devices in Use Now: Nasal Cannula Appearance: Alert, partly up in bed. In good spirits. Looks comfortable. Eyes: No Scleral Icterus Respiratory: Symmetrical Chest Expansion and Respiratory Effort, Clear to Auscultation, Clear to Percussion Cardiovascular: NL Sounds; No Murmurs; No JVD, RRR, No Edema, - Abdominal: - - Dustended, firm, tympanitic, minimally tender. Extremities: No Edema, No Clubbing, Cyanosis Skin: No Rash or Ulcers, No Nodules or Sclerosis, - Neurological: Alert and Oriented x 3, NL Sensation Result Diagrams: 07/09/17 08:09 07/09/17 08:09 Additional Lab and Data: Laboratory Tests 07/05/17 07/05/17 07/05/17 21:30 21:37 21:37 WBC 23.7 H RBC 4.91 Hgb 14.8 Hct 42 MCV 85 MCH 30 MCHC 36 RDW 14 Plt Count 514 H MPV 7 L Neut % (Auto) 71.1 Lymph % (Auto) 16.9 L [place] % (Auto) 9.3 H Eos % (Auto) 1.7 Baso % (Auto) 1.0 Absolute Neuts (auto) 16.8 H Absolute Lymphs (auto) 4.0 Absolute Monos (auto) 2.2 H Absolute Eos (auto) 0.4 Absolute Basos (auto) 0.2 Absolute Nucleated RBC 0.01 Nucleated RBC % 0.1 Sodium 134 Potassium 3.2 L Chloride 98 L Carbon Dioxide 25 Anion Gap 11 BUN 26 H Creatinine 1.15 Est GFR ( Amer) 86.2 Est GFR (Non-Af Amer) 67.0 BUN/Creatinine Ratio 22.6 H Glucose 249 H POC Glucose (mg/dL) 231 H Hemoglobin A1c Calcium 9.6 Total Bilirubin 0.30 Direct Bilirubin Indirect Bilirubin AST 26 ALT 35 Alkaline Phosphatase 89 Troponin I C-Reactive Protein 17.79 H Total Protein 7.1 Albumin 4.5 Globulin 2.6 Albumin/Globulin Ratio 1.7 Triglycerides Cholesterol LDL Cholesterol HDL Cholesterol Amylase 1385 H Lipase 4162 H Urine Color Urine Appearance Urine pH Ur Specific [place] Urine Protein Urine Ketones Urine Blood Urine Nitrate Urine Bilirubin Urine Urobilinogen Ur Leukocyte Esterase Urine WBC (Auto) Urine RBC (Auto) Urine Bacteria Urine Glucose 07/05/17 07/06/17 07/06/17 21:37 04:50 06:28 WBC 15.6 H RBC 5.03 Hgb 15.2 Hct 44 MCV 87 MCH 30 MCHC 35 RDW 14 Plt Count 376 MPV 8 Neut % (Auto) 88.5 H Lymph % (Auto) 3.5 L [place] % (Auto) 7.9 Eos % (Auto) 0 Baso % (Auto) 0.1 Absolute Neuts (auto) 13.8 H Absolute Lymphs (auto) 0.5 L Absolute Monos (auto) 1.2 H Absolute Eos (auto) 0 Absolute Basos (auto) 0 Absolute Nucleated RBC 0.01 Nucleated RBC % 0 Sodium Potassium Chloride Carbon Dioxide Anion Gap BUN Creatinine Est GFR ( Amer) Est GFR (Non-Af Amer) BUN/Creatinine Ratio Glucose POC Glucose (mg/dL) Hemoglobin A1c 7.1 H Calcium Total Bilirubin Direct Bilirubin Indirect Bilirubin AST ALT Alkaline Phosphatase Troponin I C-Reactive Protein Total Protein Albumin Globulin Albumin/Globulin Ratio Triglycerides Cholesterol LDL Cholesterol HDL Cholesterol Amylase Lipase Urine Color Yellow Urine Appearance Clear Urine pH 6.0 Ur Specific [place] 1.054 H Urine Protein 2+(100 mg/dl) H Urine Ketones 1+ H Urine Blood 1+ H Urine Nitrate Negative Urine Bilirubin Negative Urine Urobilinogen Negative Ur Leukocyte Esterase Negative Urine WBC (Auto) Absent Urine RBC (Auto) 1+(3-5/hpf) H Urine Bacteria Absent Urine Glucose 3+(>=500 mg/dl) H 07/06/17 07/06/17 07/06/17 06:28 06:28 10:16 WBC RBC Hgb Hct MCV MCH MCHC RDW Plt Count MPV Neut % (Auto) Lymph % (Auto) [place] % (Auto) Eos % (Auto) Baso % (Auto) Absolute Neuts (auto) Absolute Lymphs (auto) Absolute Monos (auto) Absolute Eos (auto) Absolute Basos (auto) Absolute Nucleated RBC Nucleated RBC % Sodium 135 Potassium 4.3 Chloride 102 Carbon Dioxide 22 Anion Gap 11 BUN 24 Creatinine 1.02 Est GFR ( Amer) 99.0 Est GFR (Non-Af Amer) 77.0 BUN/Creatinine Ratio 23.5 H Glucose 316 H POC Glucose (mg/dL) 302 H 305 H Hemoglobin A1c Calcium 8.7 Total Bilirubin 0.40 Direct Bilirubin 0.10 Indirect Bilirubin 0.3 AST 17 ALT 32 Alkaline Phosphatase 75 Troponin I C-Reactive Protein Total Protein 6.6 Albumin 4.1 Globulin 2.5 Albumin/Globulin Ratio 1.6 Triglycerides Cholesterol LDL Cholesterol HDL Cholesterol Amylase Lipase 771 H Urine Color Urine Appearance Urine pH Ur Specific [place] Urine Protein Urine Ketones Urine Blood Urine Nitrate Urine Bilirubin Urine Urobilinogen Ur Leukocyte Esterase Urine WBC (Auto) Urine RBC (Auto) Urine Bacteria Urine Glucose 07/06/17 07/06/1718 13:59 17:50 22:07 WBC RBC Hgb Hct MCV MCH MCHC RDW Plt Count MPV Neut % (Auto) Lymph % (Auto) [place] % (Auto) Eos % (Auto) Baso % (Auto) Absolute Neuts (auto) Absolute Lymphs (auto) Absolute Monos (auto) Absolute Eos (auto) Absolute Basos (auto) Absolute Nucleated RBC Nucleated RBC % Sodium Potassium Chloride Carbon Dioxide Anion Gap BUN Creatinine Est GFR ( Amer) Est GFR (Non-Af Amer) BUN/Creatinine Ratio Glucose POC Glucose (mg/dL) 258 H 203 H 194 H Hemoglobin A1c Calcium Total Bilirubin Direct Bilirubin Indirect Bilirubin AST ALT Alkaline Phosphatase Troponin I C-Reactive Protein Total Protein Albumin Globulin Albumin/Globulin Ratio Triglycerides Cholesterol LDL Cholesterol HDL Cholesterol Amylase Lipase Urine Color Urine Appearance Urine pH Ur Specific [place] Urine Protein Urine Ketones Urine Blood Urine Nitrate Urine Bilirubin Urine Urobilinogen Ur Leukocyte Esterase Urine WBC (Auto) Urine RBC (Auto) Urine Bacteria Urine Glucose 07/07/17 07/07/17 07/07/17 02:17 03:32 05:15 WBC RBC Hgb Hct MCV MCH MCHC RDW Plt Count MPV Neut % (Auto) Lymph % (Auto) [place] % (Auto) Eos % (Auto) Baso % (Auto) Absolute Neuts (auto) Absolute Lymphs (auto) Absolute Monos (auto) Absolute Eos (auto) Absolute Basos (auto) Absolute Nucleated RBC Nucleated RBC % Sodium Potassium Chloride Carbon Dioxide Anion Gap BUN Creatinine Est GFR ( Amer) Est GFR (Non-Af Amer) BUN/Creatinine Ratio Glucose POC Glucose (mg/dL) 185 H Hemoglobin A1c Calcium Total Bilirubin Direct Bilirubin Indirect Bilirubin AST ALT Alkaline Phosphatase Troponin I 0.02 0.04 H* C-Reactive Protein Total Protein Albumin Globulin Albumin/Globulin Ratio Triglycerides 105 Cholesterol 105 LDL Cholesterol 59 HDL Cholesterol 24.6 Amylase Lipase Urine Color Urine Appearance Urine pH Ur Specific [place] Urine Protein Urine Ketones Urine Blood Urine Nitrate Urine Bilirubin Urine Urobilinogen Ur Leukocyte Esterase Urine WBC (Auto) Urine RBC (Auto) Urine Bacteria Urine Glucose 07/07/17 07/07/17 07/07/17 05:15 06:05 09:33 WBC 23.1 H RBC 4.83 Hgb 14.4 Hct 42 MCV 88 MCH 30 MCHC 34 RDW 15 Plt Count 369 MPV 8 Neut % (Auto) 82.2 Lymph % (Auto) 4.3 L [place] % (Auto) 13.2 H Eos % (Auto) 0 Baso % (Auto) 0.3 Absolute Neuts (auto) 19.0 H Absolute Lymphs (auto) 1.0 Absolute Monos (auto) 3.1 H Absolute Eos (auto) 0 Absolute Basos (auto) 0.1 Absolute Nucleated RBC 0.03 Nucleated RBC % 0.1 Sodium Potassium Chloride Carbon Dioxide Anion Gap BUN Creatinine Est GFR ( Amer) Est GFR (Non-Af Amer) BUN/Creatinine Ratio Glucose POC Glucose (mg/dL) 175 H Hemoglobin A1c Calcium Total Bilirubin Direct Bilirubin Indirect Bilirubin AST ALT Alkaline Phosphatase Troponin I 0.05 H* C-Reactive Protein Total Protein Albumin Globulin Albumin/Globulin Ratio Triglycerides Cholesterol LDL Cholesterol HDL Cholesterol Amylase Lipase Urine Color Urine Appearance Urine pH Ur Specific [place] Urine Protein Urine Ketones Urine Blood Urine Nitrate Urine Bilirubin Urine Urobilinogen Ur Leukocyte Esterase Urine WBC (Auto) Urine RBC (Auto) Urine Bacteria Urine Glucose 07/07/17 07/07/17 07/07/17 09:40 13:38 14:42 WBC RBC Hgb Hct MCV MCH MCHC RDW Plt Count MPV Neut % (Auto) Lymph % (Auto) [place] % (Auto) Eos % (Auto) Baso % (Auto) Absolute Neuts (auto) Absolute Lymphs (auto) Absolute Monos (auto) Absolute Eos (auto) Absolute Basos (auto) Absolute Nucleated RBC Nucleated RBC % Sodium Potassium Chloride Carbon Dioxide Anion Gap BUN Creatinine Est GFR ( Amer) Est GFR (Non-Af Amer) BUN/Creatinine Ratio Glucose POC Glucose (mg/dL) 158 H 163 H Hemoglobin A1c Calcium Total Bilirubin Direct Bilirubin Indirect Bilirubin AST ALT Alkaline Phosphatase Troponin I 0.07 H* C-Reactive Protein Total Protein Albumin Globulin Albumin/Globulin Ratio Triglycerides Cholesterol LDL Cholesterol HDL Cholesterol Amylase Lipase Urine Color Urine Appearance Urine pH Ur Specific [place] Urine Protein Urine Ketones Urine Blood Urine Nitrate Urine Bilirubin Urine Urobilinogen Ur Leukocyte Esterase Urine WBC (Auto) Urine RBC (Auto) Urine Bacteria Urine Glucose 07/07/17 07/07/17 18:09 18:19 WBC RBC Hgb Hct MCV MCH MCHC RDW Plt Count MPV Neut % (Auto) Lymph % (Auto) [place] % (Auto) Eos % (Auto) Baso % (Auto) Absolute Neuts (auto) Absolute Lymphs (auto) Absolute Monos (auto) Absolute Eos (auto) Absolute Basos (auto) Absolute Nucleated RBC Nucleated RBC % Sodium Potassium Chloride Carbon Dioxide Anion Gap BUN Creatinine Est GFR ( Amer) Est GFR (Non-Af Amer) BUN/Creatinine Ratio Glucose POC Glucose (mg/dL) 236 H Hemoglobin A1c Calcium Total Bilirubin Direct Bilirubin Indirect Bilirubin AST ALT Alkaline Phosphatase Troponin I 0.01 C-Reactive Protein Total Protein Albumin Globulin Albumin/Globulin Ratio Triglycerides Cholesterol LDL Cholesterol HDL Cholesterol Amylase Lipase Urine Color Urine Appearance Urine pH Ur Specific [place] Urine Protein Urine Ketones Urine Blood Urine Nitrate Urine Bilirubin Urine Urobilinogen Ur Leukocyte Esterase Urine WBC (Auto) Urine RBC (Auto) Urine Bacteria Urine Glucose Microbiology and Other Data: Microbiology 07/07/17 03:32 Aerobic Blood Culture - Preliminary Blood Venous No Growth Day 1 Anaerobic Blood Culture - Preliminary No Growth Day 1 Assess/Plan/Problems-Billing Assessment: 52 yo male PMH bipolar disorder on valproate, HLD p/w acute pancreatitis, likely 2/2 to valproate. Lipids wnl. IgG/CHRIS pending. on dilaudid director paid media #acute pancreatitis - continue LR 250cc/hr - clear liquids, ADAT - lipase improved first 24 hr - evaluate repeat CT for any necrotic collections. - dilaudid director paid media, consider wean tomorrow as abd pain has improved (for this provider, though not always on RN report) - is on continuous pulse ox and telemetry. #Bipolar - hold valproate - consider psych consult for alternative therapy #HLD - continue CODE: FULL - Patient Problems (1) Pancreatitis Current Visit: Yes Status: Acute Code(s): K85.90 - ACUTE PANCREATITIS WITHOUT NECROSIS OR INFECTION, UNSP SNOMED Code(s): 51429274 Comment: Lipase wnl on 07/09. Repeat CT scan 07/08 showed worsening but probably lagging behind clinical improvement. IV fluids reduced again, diet advanced. Hold valproic acid. Remove [place], tele, O2, encourage ambulation. Hydrocodone/APAP PRN pain. Status and Disposition: medicine inpatient.
--- NOTE | 2017-07-08 17:05 | RAD ---
INDICATION: Reassess pancreatitis. COMPARISON: July 06, 2017 CT. TECHNIQUE: Multidetector CT images were obtained from the lung bases to the iliac crests without contrast. Multiplanar reformation. REPORT: Small RIGHT and moderate LEFT dependent pleural effusions grossly new compared with the prior exam. Proportional compressive atelectasis. Negative for cardiomegaly or pericardial effusion. 23.6 cm cephalocaudal liver with diffuse decreased density consistent with hepatosteatosis. Hyperdense contents of the gallbladder most consistent with vicarious excretion of contrast from the previous contrast-enhanced CT scan. Negative for biliary dilatation. Increased magnitude of peripancreatic inflammatory stranding including at the anterior pararenal retroperitoneal space, gastrosplenic ligament, and lesser sac. Infiltrative anterior pararenal space peripancreatic fluid most prominent extending LEFT lateral. No loculated peripancreatic fluid collections evident within limits of noncontrast CT. Unremarkable spleen. Diffuse mild dilatation of the small bowel loops within the [id number] most suggestive of ileus. Minimal nonloculated ascites. Unremarkable adrenal glands and unenhanced kidneys. Negative for lymphadenopathy. Normal diameter abdominal aorta. Physiologic distention of the IVC. Negative for suspicious focal osseous lesions. IMPRESSION: Evidence for worsening pancreatic inflammation with increased magnitude of peripancreatic inflammatory stranding including at the anterior pararenal retroperitoneal space, gastrosplenic ligament, and lesser sac. Infiltrative anterior pararenal space peripancreatic fluid most prominent extending LEFT lateral. No loculated peripancreatic fluid collections evident within limits of noncontrast CT.
[2017-07-08] MEDS ORDERED: Magnesium Hydroxide LIQ* 30 ML UDC PO ONE (17:45)
[2017-07-08] MEDS: D5W 1/2 NS KCl 20 Meq 1000 ML* 1,000 ML IV SCH (17:48)
[2017-07-08] MEDS: TRIFLUOPERAZINE HCL 5 MG PO SCH (18:21)
[2017-07-08] MEDS ORDERED: Divalproex DR TAB(*) 500 MG PO SCH (21:00)
[2017-07-09] MEDS ORDERED: Simethicone TAB* 80 MG TAB.CHEW PO PRN (01:15)
[2017-07-09] MEDS: Insulin LISPRO* 1 UNITS UNIT SUBCUT SCH ×6 (02:04→21:56)
[2017-07-09] MEDS ORDERED: Magnesium Hydroxide LIQ* 30 ML UDC PO ONE (03:24)
[2017-07-09] MEDS: D5W 1/2 NS KCl 20 Meq 1000 ML* 1,000 ML IV SCH ×2 (04:19→14:28)
[2017-07-09 08:40] LABS: Hematocrit 35 % (42-52); Hemoglobin 11.8 g/dl (14.0-18.0); Mean Corpuscular HGB Conc 34 g/dl (31-36); Mean Corpuscular Hemoglobin 30 pg (27-31); Mean Corpuscular Volume 88 fL (80-94); Mean Platelet Volume 8 um3 (7.4-10.4); Platelet Count 374 10^3/ul (150-450); Red Blood Count 3.98 10^6/ul (4.0-5.4); Red Cell Distribution Width 14 % (10.5-15); White Blood Count 16.9 10^3/ul (3.5-10.8)
[2017-07-09 08:43] LABS: ABS Basophils 0.1 10^3/ul (0-0.2); ABS Eosinophils 0.2 10^3/ul (0-0.6); ABS Lymphocytes 1.1 10^3/ul (1.0-4.8); ABS Monocytes 1.6 10^3/ul (0-0.8); ABS Neutrophils 13.9 10^3/ul (1.5-7.7); ABS Nucleated RBC 0 10^3/ul; Eosinophil % 1.1 % (0-6); Lymphocyte % 6.7 % (25-47); Nucleated Red Blood Cells % 0.1
[2017-07-09] MEDS: Pantoprazole IV* 40 MG IV SCH (08:47)
[2017-07-09] MEDS: Docusate CAP* 100 MG PO SCH ×2 (08:50→19:59)
[2017-07-09] MEDS: TRIFLUOPERAZINE HCL 5 MG PO SCH (08:50)
[2017-07-09 08:56] LABS: EGFR Non-African American 86.7 (>60)
--- NOTE | 2017-07-09 11:48 | PN ---
Subjective Date of Service: 07/09/17 Interval History: C/O chronic back pain, ? also abdominal pain. Objective Active Medications: Hydrocodone Bitart/Acetaminophen ([place] 5-325 Tab*) 1 tab PO Q3H PRN PRN Reason: PAIN - MODERATE Docusate Sodium (Colace Cap*) 200 mg PO BID [facility] Last Admin: 07/09/17 08:50 Dose: Not Given Potassium Chloride/Dextrose (D5w 1/2 Ns Kcl 20 Meq 1000 Ml*) 1,000 mls @ 60 mls /hr IV PER RATE [facility] Insulin Human Lispro (Humalog*) 0 units SUBCUT Q4H [facility] PRN Reason: Protocol Last Admin: 07/09/17 10:53 Dose: 9 units Lorazepam (Ativan Inj*) 1 mg IV BEDTIME PRN PRN Reason: SLEEP Pto: Trifluoperazine Hcl [ Trifluoperazine Hcl] 5 Mg 5 mg PO BEDTIME [facility] Pantoprazole Sodium (Protonix Iv*) 40 mg IV DAILY [facility] Last Admin: 07/09/17 08:47 Dose: 40 mg Simethicone (Mylicon Tab*) 80 mg PO ONCE PRN PRN Reason: GAS Last Admin: 07/09/17 02:06 Dose: 80 mg Vital Signs - 8 hr 07/09/17 07/09/17 07/09/17 04:23 05:00 06:30 Temperature 98.9 F Pulse Rate 125 114 Respiratory 22 22 22 Rate Blood Pressure 160/96 (mmHg) O2 Sat by Pulse 95 95 95 Oximetry 07/09/17 07/09/17 07/09/17 07:00 07:40 07:58 Temperature 98.0 F Pulse Rate 108 Respiratory 16 16 16 Rate Blood Pressure 163/90 (mmHg) O2 Sat by Pulse 95 98 95 Oximetry 07/09/17 09:00 Temperature Pulse Rate Respiratory 16 Rate Blood Pressure (mmHg) O2 Sat by Pulse 98 Oximetry Oxygen Devices in Use Now: Nasal Cannula Appearance: Alert, partly up in bed. In good spirits. Looks comfortable. Eyes: No Scleral Icterus Abdominal: NL Sounds; No Tenderness; No Distention, No Hepatosplenomegaly, - - obese but soft, not tender. Extremities: No Edema, No Clubbing, Cyanosis, - Skin: No Rash or Ulcers, No Nodules or Sclerosis, - Neurological: Alert and Oriented x 3, NL Sensation Result Diagrams: 07/09/17 08:09 07/09/17 08:09 Additional Lab and Data: Laboratory Tests 07/05/17 07/05/17 07/05/17 21:30 21:37 21:37 WBC 23.7 H RBC 4.91 Hgb 14.8 Hct 42 MCV 85 MCH 30 MCHC 36 RDW 14 Plt Count 514 H MPV 7 L Neut % (Auto) 71.1 Lymph % (Auto) 16.9 L [place] % (Auto) 9.3 H Eos % (Auto) 1.7 Baso % (Auto) 1.0 Absolute Neuts (auto) 16.8 H Absolute Lymphs (auto) 4.0 Absolute Monos (auto) 2.2 H Absolute Eos (auto) 0.4 Absolute Basos (auto) 0.2 Absolute Nucleated RBC 0.01 Nucleated RBC % 0.1 Sodium 134 Potassium 3.2 L Chloride 98 L Carbon Dioxide 25 Anion Gap 11 BUN 26 H Creatinine 1.15 Est GFR ( Amer) 86.2 Est GFR (Non-Af Amer) 67.0 BUN/Creatinine Ratio 22.6 H Glucose 249 H POC Glucose (mg/dL) 231 H Hemoglobin A1c Calcium 9.6 Total Bilirubin 0.30 Direct Bilirubin Indirect Bilirubin AST 26 ALT 35 Alkaline Phosphatase 89 Troponin I C-Reactive Protein 17.79 H Total Protein 7.1 Albumin 4.5 Globulin 2.6 Albumin/Globulin Ratio 1.7 Triglycerides Cholesterol LDL Cholesterol HDL Cholesterol Amylase 1385 H Lipase 4162 H Urine Color Urine Appearance Urine pH Ur Specific [place] Urine Protein Urine Ketones Urine Blood Urine Nitrate Urine Bilirubin Urine Urobilinogen Ur Leukocyte Esterase Urine WBC (Auto) Urine RBC (Auto) Urine Bacteria Urine Glucose 07/05/17 07/06/17 07/06/17 21:37 04:50 06:28 WBC 15.6 H RBC 5.03 Hgb 15.2 Hct 44 MCV 87 MCH 30 MCHC 35 RDW 14 Plt Count 376 MPV 8 Neut % (Auto) 88.5 H Lymph % (Auto) 3.5 L [place] % (Auto) 7.9 Eos % (Auto) 0 Baso % (Auto) 0.1 Absolute Neuts (auto) 13.8 H Absolute Lymphs (auto) 0.5 L Absolute Monos (auto) 1.2 H Absolute Eos (auto) 0 Absolute Basos (auto) 0 Absolute Nucleated RBC 0.01 Nucleated RBC % 0 Sodium Potassium Chloride Carbon Dioxide Anion Gap BUN Creatinine Est GFR ( Amer) Est GFR (Non-Af Amer) BUN/Creatinine Ratio Glucose POC Glucose (mg/dL) Hemoglobin A1c 7.1 H Calcium Total Bilirubin Direct Bilirubin Indirect Bilirubin AST ALT Alkaline Phosphatase Troponin I C-Reactive Protein Total Protein Albumin Globulin Albumin/Globulin Ratio Triglycerides Cholesterol LDL Cholesterol HDL Cholesterol Amylase Lipase Urine Color Yellow Urine Appearance Clear Urine pH 6.0 Ur Specific [place] 1.054 H Urine Protein 2+(100 mg/dl) H Urine Ketones 1+ H Urine Blood 1+ H Urine Nitrate Negative Urine Bilirubin Negative Urine Urobilinogen Negative Ur Leukocyte Esterase Negative Urine WBC (Auto) Absent Urine RBC (Auto) 1+(3-5/hpf) H Urine Bacteria Absent Urine Glucose 3+(>=500 mg/dl) H 07/06/17 07/06/17 07/06/17 06:28 06:28 10:16 WBC RBC Hgb Hct MCV MCH MCHC RDW Plt Count MPV Neut % (Auto) Lymph % (Auto) [place] % (Auto) Eos % (Auto) Baso % (Auto) Absolute Neuts (auto) Absolute Lymphs (auto) Absolute Monos (auto) Absolute Eos (auto) Absolute Basos (auto) Absolute Nucleated RBC Nucleated RBC % Sodium 135 Potassium 4.3 Chloride 102 Carbon Dioxide 22 Anion Gap 11 BUN 24 Creatinine 1.02 Est GFR ( Amer) 99.0 Est GFR (Non-Af Amer) 77.0 BUN/Creatinine Ratio 23.5 H Glucose 316 H POC Glucose (mg/dL) 302 H 305 H Hemoglobin A1c Calcium 8.7 Total Bilirubin 0.40 Direct Bilirubin 0.10 Indirect Bilirubin 0.3 AST 17 ALT 32 Alkaline Phosphatase 75 Troponin I C-Reactive Protein Total Protein 6.6 Albumin 4.1 Globulin 2.5 Albumin/Globulin Ratio 1.6 Triglycerides Cholesterol LDL Cholesterol HDL Cholesterol Amylase Lipase 771 H Urine Color Urine Appearance Urine pH Ur Specific [place] Urine Protein Urine Ketones Urine Blood Urine Nitrate Urine Bilirubin Urine Urobilinogen Ur Leukocyte Esterase Urine WBC (Auto) Urine RBC (Auto) Urine Bacteria Urine Glucose 07/06/17 07/06/17 07/06/17 13:59 17:50 22:07 WBC RBC Hgb Hct MCV MCH MCHC RDW Plt Count MPV Neut % (Auto) Lymph % (Auto) [place] % (Auto) Eos % (Auto) Baso % (Auto) Absolute Neuts (auto) Absolute Lymphs (auto) Absolute Monos (auto) Absolute Eos (auto) Absolute Basos (auto) Absolute Nucleated RBC Nucleated RBC % Sodium Potassium Chloride Carbon Dioxide Anion Gap BUN Creatinine Est GFR ( Amer) Est GFR (Non-Af Amer) BUN/Creatinine Ratio Glucose POC Glucose (mg/dL) 258 H 203 H 194 H Hemoglobin A1c Calcium Total Bilirubin Direct Bilirubin Indirect Bilirubin AST ALT Alkaline Phosphatase Troponin I C-Reactive Protein Total Protein Albumin Globulin Albumin/Globulin Ratio Triglycerides Cholesterol LDL Cholesterol HDL Cholesterol Amylase Lipase Urine Color Urine Appearance Urine pH Ur Specific [place] Urine Protein Urine Ketones Urine Blood Urine Nitrate Urine Bilirubin Urine Urobilinogen Ur Leukocyte Esterase Urine WBC (Auto) Urine RBC (Auto) Urine Bacteria Urine Glucose 07/07/17 07/07/17 07/07/17 02:17 03:32 05:15 WBC RBC Hgb Hct MCV MCH MCHC RDW Plt Count MPV Neut % (Auto) Lymph % (Auto) [place] % (Auto) Eos % (Auto) Baso % (Auto) Absolute Neuts (auto) Absolute Lymphs (auto) Absolute Monos (auto) Absolute Eos (auto) Absolute Basos (auto) Absolute Nucleated RBC Nucleated RBC % Sodium Potassium Chloride Carbon Dioxide Anion Gap BUN Creatinine Est GFR ( Amer) Est GFR (Non-Af Amer) BUN/Creatinine Ratio Glucose POC Glucose (mg/dL) 185 H Hemoglobin A1c Calcium Total Bilirubin Direct Bilirubin Indirect Bilirubin AST ALT Alkaline Phosphatase Troponin I 0.02 0.04 H* C-Reactive Protein Total Protein Albumin Globulin Albumin/Globulin Ratio Triglycerides 105 Cholesterol 105 LDL Cholesterol 59 HDL Cholesterol 24.6 Amylase Lipase Urine Color Urine Appearance Urine pH Ur Specific [place] Urine Protein Urine Ketones Urine Blood Urine Nitrate Urine Bilirubin Urine Urobilinogen Ur Leukocyte Esterase Urine WBC (Auto) Urine RBC (Auto) Urine Bacteria Urine Glucose 07/07/17 07/07/17 07/07/17 05:15 06:05 09:33 WBC 23.1 H RBC 4.83 Hgb 14.4 Hct 42 MCV 88 MCH 30 MCHC 34 RDW 15 Plt Count 369 MPV 8 Neut % (Auto) 82.2 Lymph % (Auto) 4.3 L [place] % (Auto) 13.2 H Eos % (Auto) 0 Baso % (Auto) 0.3 Absolute Neuts (auto) 19.0 H Absolute Lymphs (auto) 1.0 Absolute Monos (auto) 3.1 H Absolute Eos (auto) 0 Absolute Basos (auto) 0.1 Absolute Nucleated RBC 0.03 Nucleated RBC % 0.1 Sodium Potassium Chloride Carbon Dioxide Anion Gap BUN Creatinine Est GFR ( Amer) Est GFR (Non-Af Amer) BUN/Creatinine Ratio Glucose POC Glucose (mg/dL) 175 H Hemoglobin A1c Calcium Total Bilirubin Direct Bilirubin Indirect Bilirubin AST ALT Alkaline Phosphatase Troponin I 0.05 H* C-Reactive Protein Total Protein Albumin Globulin Albumin/Globulin Ratio Triglycerides Cholesterol LDL Cholesterol HDL Cholesterol Amylase Lipase Urine Color Urine Appearance Urine pH Ur Specific [place] Urine Protein Urine Ketones Urine Blood Urine Nitrate Urine Bilirubin Urine Urobilinogen Ur Leukocyte Esterase Urine WBC (Auto) Urine RBC (Auto) Urine Bacteria Urine Glucose 07/07/17 07/07/17 07/07/17 09:40 13:38 14:42 WBC RBC Hgb Hct MCV MCH MCHC RDW Plt Count MPV Neut % (Auto) Lymph % (Auto) [place] % (Auto) Eos % (Auto) Baso % (Auto) Absolute Neuts (auto) Absolute Lymphs (auto) Absolute Monos (auto) Absolute Eos (auto) Absolute Basos (auto) Absolute Nucleated RBC Nucleated RBC % Sodium Potassium Chloride Carbon Dioxide Anion Gap BUN Creatinine Est GFR ( Amer) Est GFR (Non- Amer) BUN/Creatinine Ratio Glucose POC Glucose (mg/dL) 158 H 163 H Hemoglobin A1c Calcium Total Bilirubin Direct Bilirubin Indirect Bilirubin AST ALT Alkaline Phosphatase Troponin I 0.07 H* C-Reactive Protein Total Protein Albumin Globulin Albumin/Globulin Ratio Triglycerides Cholesterol LDL Cholesterol HDL Cholesterol Amylase Lipase Urine Color Urine Appearance Urine pH Ur Specific [place] Urine Protein Urine Ketones Urine Blood Urine Nitrate Urine Bilirubin Urine Urobilinogen Ur Leukocyte Esterase Urine WBC (Auto) Urine RBC (Auto) Urine Bacteria Urine Glucose 07/07/17 07/07/17 18:09 18:19 WBC RBC Hgb Hct MCV MCH MCHC RDW Plt Count MPV Neut % (Auto) Lymph % (Auto) [place] % (Auto) Eos % (Auto) Baso % (Auto) Absolute Neuts (auto) Absolute Lymphs (auto) Absolute Monos (auto) Absolute Eos (auto) Absolute Basos (auto) Absolute Nucleated RBC Nucleated RBC % Sodium Potassium Chloride Carbon Dioxide Anion Gap BUN Creatinine Est GFR ( Amer) Est GFR (Non-Af Amer) BUN/Creatinine Ratio Glucose POC Glucose (mg/dL) 236 H Hemoglobin A1c Calcium Total Bilirubin Direct Bilirubin Indirect Bilirubin AST ALT Alkaline Phosphatase Troponin I 0.01 C-Reactive Protein Total Protein Albumin Globulin Albumin/Globulin Ratio Triglycerides Cholesterol LDL Cholesterol HDL Cholesterol Amylase Lipase Urine Color Urine Appearance Urine pH Ur Specific [place] Urine Protein Urine Ketones Urine Blood Urine Nitrate Urine Bilirubin Urine Urobilinogen Ur Leukocyte Esterase Urine WBC (Auto) Urine RBC (Auto) Urine Bacteria Urine Glucose Microbiology and Other Data: Microbiology 07/07/17 03:32 Aerobic Blood Culture - Preliminary Blood Venous No Growth Day 1 Anaerobic Blood Culture - Preliminary No Growth Day 1 Assess/Plan/Problems-Billing Assessment: 52 yo male PMH bipolar disorder on valproate, HLD p/w acute pancreatitis, likely 2/2 to valproate. Lipids wnl. IgG/CHRIS pending. on dilaudid bird raiser #acute pancreatitis - continue LR 250cc/hr - clear liquids, ADAT - lipase improved first 24 hr - evaluate repeat CT for any necrotic collections. - dilaudid bird raiser, consider wean tomorrow as abd pain has improved (for this provider, though not always on RN report) - is on continuous pulse ox and telemetry. #Bipolar - hold valproate - consider psych consult for alternative therapy #HLD - continue CODE: FULL - Patient Problems (1) Pancreatitis Current Visit: Yes Status: Acute Code(s): K85.90 - ACUTE PANCREATITIS WITHOUT NECROSIS OR INFECTION, UNSP SNOMED Code(s): 01842020 Comment: Lipase wnl on 07/09. Repeat CT scan 07/08 showed worsening but probably lagging behind clinical improvement. IV fluids reduced again, diet advanced. Hold valproic acid. Remove [place], tele, O2, encourage ambulation. Hydrocodone/APAP PRN pain. (2) Psychiatric disorder Current Visit: Yes Status: Acute Code(s): F99 - MENTAL DISORDER, NOT OTHERWISE SPECIFIED SNOMED Code(s): 46370934 Comment: Continue trifluoperazine, patient has his own bottle. Hold valproic acid, could be cause fo pancreatitis. Status and Disposition: medicine inpatient.
[2017-07-09] MEDS: HYDROcodone/ACETAMIN 5-325 MG* 1 TAB PO PRN ×2 (12:29→16:30)
[2017-07-09] MEDS ORDERED: TRIFLUOPERAZINE HCL 5 MG PO SCH (21:00)
[2017-07-10] MEDS: Insulin LISPRO* 1 UNITS UNIT SUBCUT SCH ×2 (02:50→06:03)
[2017-07-10] MEDS: HYDROcodone/ACETAMIN 5-325 MG* 1 TAB PO PRN ×2 (04:28→07:27)
[2017-07-10] MEDS: Docusate CAP* 100 MG PO SCH (07:19)
[2017-07-10] MEDS: D5W 1/2 NS KCl 20 Meq 1000 ML* 1,000 ML IV SCH (07:26)
[2017-07-10 07:58] LABS: Hematocrit 33 % (42-52); Hemoglobin 11.2 g/dl (14.0-18.0); Mean Corpuscular HGB Conc 34 g/dl (31-36); Mean Corpuscular Hemoglobin 30 pg (27-31); Mean Corpuscular Volume 87 fL (80-94); Mean Platelet Volume 7 um3 (7.4-10.4); Platelet Count 439 10^3/ul (150-450); Red Blood Count 3.77 10^6/ul (4.0-5.4); Red Cell Distribution Width 14 % (10.5-15)
[2017-07-10 08:12] LABS: EGFR Non-African American 96.3 (>60)
[2017-07-10] MEDS: Pantoprazole IV* 40 MG IV SCH (08:14)
[2017-07-10 08:43] LABS: ABS Basophils 0 10^3/ul (0-0.2); ABS Eosinophils 0.4 10^3/ul (0-0.6); ABS Lymphocytes 1.2 10^3/ul (1.0-4.8); ABS Monocytes 1.3 10^3/ul (0-0.8); ABS Nucleated RBC 0 10^3/ul; Eosinophil % 3.2 % (0-6); Lymphocyte % 10.3 % (25-47); Nucleated Red Blood Cells % 0
[2017-07-10 08:55] VITALS: BP 149/83
--- NOTE | 2017-07-10 10:54 | PN ---
"Progress Note - Progress Note Date of Service: 07/10/17 Note: Time spent on discharge 55 minutes. Search Terms: juan moise, 1965 Search Date: 07/10/2017 10:53:21 AM The Drug Utilization Report below displays all of the controlled substance prescriptions, if any, that your patient has filled in the last twelve months. The information displayed on this report is compiled from pharmacy submissions to the Department, and accurately reflects the information as submitted by the pharmacies. This report was requested by: Thom Solares | Reference #: [id number] Others' Prescriptions Patient Name: Juan Moise Date: 1965 Address: [address] [place] [address] Sex: Male Rx Written Rx Dispensed Drug Quantity Days Supply Prescriber Name 06/23/2017 06/29/2017 dextroamp-amphet er 15 mg cap 30 30 Lonnie Hidalgo MD 06/23/2017 06/28/2017 zolpidem tartrate 10 mg tablet 30 30 BabLonnie hough MD 05/05/2017 05/22/2017 dextroamp-amphet er 15 mg cap 30 30 BabiaLonnie chavira MD 04/13/2017 04/17/2017 dextroamp-amphet er 15 mg cap 30 30 BabiaLonnie chavira MD 03/08/2017 03/13/2017 dextroamp-amphet er 15 mg cap 30 30 BabiaLonnie chavira MD 01/31/2017 02/06/2017 dextroamp-amphet er 15 mg cap 30 30 BabiaLonnie chavira MD 12/29/2016 12/30/2016 dextroamp-amphet er 15 mg cap 30 30 BabiaLonnie chavira MD 09/29/2016 10/16/2016 dextroamp-amphet er 15 mg cap 30 30 BabiaLonnie chavira MD 09/06/2016 09/11/2016 dextroamp-amphet er 15 mg cap 30 30 BabLonnie hough MD"
--- NOTE | 2017-07-11 09:30 | DS ---
CC: Dr. Joe * DISCHARGE SUMMARY: DATE OF ADMISSION: 07/06/17 DATE OF DISCHARGE: 07/10/17 HOSPITAL COURSE: This 52-year-old man presented with abdominal pain. He was found to have pancreatitis. Lipase was markedly elevated. CT scan with contrast showed evidence of acute pancreatitis. The patient was treated with intravenous fluids and analgesics. He recovered fairly rapidly. He had mild pain on the day of discharge. This was well controlled with hydrocodone and acetaminophen. His lipase returned to normal. It was felt possible that the di-valproic acid was the cause of his pancreatitis and he was advised to never take this again. This will be listed as an allergy. His CT scan on 07/08/17 was done without contrast. He had IV dye with the initial CT scan on 07/06/17. His renal function was unchanged. He can resume his metformin at home as usual. FINAL DIAGNOSES: 1. Acute pancreatitis possibly secondary to di-valproic acid. 2. Psychiatric disorder. 3. Diabetes. 4. Hypertension. DISCHARGE MEDICATIONS: 1. Hydrocodone. 2. Acetaminophen 5/325 one every 4 hours p.r.n. 3. Sertraline 100 mg daily. 4. Aspirin 81 mg daily. 5. Metformin 1000 mg b.i.d. 6. Lisinopril 40 mg daily. 7. Amlodipine 10 mg daily. 8. Hydrochlorothiazide 25 mg daily. 9. Zolpidem 10 mg h.s. 10. Omeprazole 40 mg daily. 11. Glargine insulin 62 units daily. 12. Sitagliptin 100 mg daily. 13. Pravastatin 40 mg h.s. 14. Naproxen 220 mg b.i.d. p.r.n. 15. Dextroamphetamine 5 mg as prescribed. 16. Amphetamine mixed salts 10 mg daily. 17. Trifluoperazine 5 mg daily. [id number]/[facility] #: [id number] [facility]
== END 2017-07-10 11:21 | disposition home or self-care (01) | DRG 282 ==
LOC: ED 21:02 → MEDTELE 07-06 00:53
PROVIDERS: ADMIT Hospitalist; ATTEND Internal Medicine
DX: K85.30 Drug induced acute pancreatitis without necrosis or infection (principal); E11.9 Type 2 diabetes mellitus without complications; T42.6X5A Adverse effect of other antiepileptic and sedative-hypnotic drugs, initial encounter; Y92.9 Unspecified place or not applicable; X58.XXXA Exposure to other specified factors, initial encounter; E66.9 Obesity, unspecified; Z68.31 Body mass index [BMI] 31.0-31.9, adult; Z79.84 Long term (current) use of oral hypoglycemic drugs; I10 Essential (primary) hypertension; E78.5 Hyperlipidemia, unspecified; F98.8 Other specified behavioral and emotional disorders with onset usually occurring in childhood and adolescence; K21.9 Gastro-esophageal reflux disease without esophagitis; F31.9 Bipolar disorder, unspecified; F32.9 Major depressive disorder, single episode, unspecified; Z79.1 Long term (current) use of non-steroidal anti-inflammatories (NSAID); Z79.82 Long term (current) use of aspirin; Z79.4 Long term (current) use of insulin; Z79.899 Other long term (current) drug therapy; Z88.0 Allergy status to penicillin; Z81.1 Family history of alcohol abuse and dependence; Z83.3 Family history of diabetes mellitus; Z82.49 Family history of ischemic heart disease and other diseases of the circulatory system; Z84.89 Family history of other specified conditions; E87.6 Hypokalemia
CPT/HCPCS: 36415; 71045; 74150; 74177; 76705; 80048; 80053; 80061; 80076; 81003; 81015; 82150; 82784; 82787; 83036; 83690; 84484; 85025; 86038; 86140; 87040; 93005; 94760; A9270-GY; J0360; J1170; J1200; J2405; J2765; J3480; J3490; Q9967

== ENCOUNTER 2018-01-12 19:16 | Emergency (ER) | payer BC ==
[2018-01-12 20:43] LABS: Hematocrit 38 % (42-52); Hemoglobin 13.5 g/dl (14.0-18.0); Mean Corpuscular HGB Conc 35 g/dl (31-36); Mean Corpuscular Hemoglobin 30 pg (27-31); Mean Corpuscular Volume 85 fL (80-94); Mean Platelet Volume 7.4 um3 (7.4-10.4); Platelet Count 403 10^3/ul (150-450); Red Blood Count 4.53 10^6/ul (4.00-5.40); Red Cell Distribution Width 14 % (10.5-15); White Blood Count 14.9 10^3/ul (3.5-10.8)
[2018-01-12 20:58] LABS: EGFR Non-African American 50.5 (>60)
--- NOTE | 2018-01-12 22:00 | ED ---
GI/ HPI - HPI Summary HPI Summary: 52 y/o male presents to the ED c/o constant L side ABD pain, starting 2 days ago. Pain aggravated with deep breaths. Pain radiates to the R side groin and testicles intermittently. PMHx DM, HTN. Denies N/V/D. 2x BM today. No Sx. No PMHx kidney stones. - History of Current Complaint Chief Complaint: EDFlankPain Stated Complaint: FLANK PAIN Hx Obtained From: Patient Onset/Duration: Started Days Ago Timing: Constant Pain Intensity: 4 Location of Pain: LLQ Associated Signs and Symptoms: Negative: Nausea, Vomiting, Diarrhea - Additional Pertinent History Primary Care Physician: [id number] - Allergy/Home Medications Allergies/Adverse Reactions: Allergies Allergy/AdvReac Type Severity Reaction Status Date / Time Penicillins Allergy Unknown Verified 01/12/18 19:25 Reaction Details PMH/Surg Hx/FS Hx/Imm Hx Endocrine/Hematology History: Reports: Hx Diabetes Cardiovascular History: Reports: Hx Hypercholesterolemia, Hx Hypertension Respiratory History: Denies: Hx Chronic Obstructive Pulmonary Disease (COPD) GI History: Denies: Hx Cirrhosis History: Denies: Hx Acute Renal Failure, Hx Renal Disease Musculoskeletal History: Denies: Hx Arthritis Sensory History: Reports: Hx Contacts or Glasses Denies: Hx Hearing Aid Opthamlomology History: Reports: Hx Contacts or Glasses Neurological History: Denies: Hx CVA, Hx Dementia Psychiatric History: Reports: Hx Depression, Hx Bipolar Disorder Infectious Disease History: No Infectious Disease History: Denies: Traveled Outside the [place] in Last 30 Days - Family History Known Family History: Negative: Hypertension - Social History Alcohol Use: Occasionally Substance Use Type: Reports: None Smoking Status (MU): Never Smoked Tobacco Review of Systems Negative: Fever, Chills Negative: Erythema Negative: Sore Throat Negative: Chest Pain Negative: Shortness Of Breath, Cough Positive: Abdominal Pain. Negative: Vomiting, Diarrhea, Nausea Negative: dysuria, hematuria Negative: Myalgia, Edema Negative: Rash Neurological: Other - No dizziness All Other Systems Reviewed And Are Negative: Yes Physical Exam - Summary Physical Exam Summary: Constitutional: Well-developed, Well-nourished, Alert. (-) Distressed Skin: Warm, Dry HENT: Normocephalic; Atraumatic Eyes: Conjunctiva normal Neck: Musculoskeletal ROM normal neck. (-) JVD, (-) Stridor, (-) Tracheal deviation Cardio: Rhythm regular, rate normal, Heart sounds normal; Intact distal pulses; The pedal pulses are 2+ and symmetric. Radial pulses are 2+ and symmetric. (-) Murmur Pulmonary/Chest wall: Effort normal. (-) Respiratory distress, (-) Wheezes, (-) Rales Abd: Soft, (+) LLQ tenderness, (-) Distension, (-) Guarding, (-) Rebound Musculoskeletal: (-) Edema Lymph: (-) Cervical adenopathy Neuro: Alert, Oriented x3 Psych: Mood and affect Normal Triage Information Reviewed: Yes Vital Signs On Initial Exam: Initial Vitals Temp Pulse Resp BP Pulse Ox 97.7 F 110 17 157/92 98 01/12/18 19:25 01/12/18 19:25 01/12/18 19:25 01/12/18 19:25 01/12/18 19:25 Vital Signs Reviewed: Yes Diagnostics - Vital Signs Vital Signs Temp Pulse Resp BP Pulse Ox 01/12/18 21:36 97.2 F 102 17 158/92 96 01/12/18 19:25 97.7 F 110 17 157/92 98 - Laboratory Lab Results: Lab Results 01/12/18 01/12/18 Range/Units 20:35 20:35 WBC 14.9 H (3.5-10.8) 10^3/ul RBC 4.53 (4.00-5.40) 10^6/ul Hgb 13.5 L (14.0-18.0) g/dl Hct 38 L (42-52) % MCV 85 (80-94) fL MCH 30 (27-31) pg MCHC 35 (31-36) g/dl RDW 14 (10.5-15) % Plt Count 403 (150-450) 10^3/ul MPV 7.4 (7.4-10.4) um3 Sodium 138 (135-145) mmol/L Potassium 4.1 (3.5-5.0) mmol/L Chloride 103 (101-111) mmol/L Carbon Dioxide 28 (22-32) mmol/L Anion Gap 7 (2-11) mmol/L BUN 18 (6-24) mg/dL Creatinine 1.47 H (0.67-1.17) mg/dL Est GFR ( Amer) 61.1 (>60) Est GFR (Non-Af Amer) 50.5 (>60) BUN/Creatinine Ratio 12.2 (8-20) Glucose 174 H (70-100) mg/dL Calcium 9.5 (8.6-10.3) mg/dL Total Bilirubin 0.40 (0.2-1.0) mg/dL AST 16 (13-39) U/L ALT 26 (7-52) U/L Alkaline Phosphatase 108 H (34-104) U/L Total Protein 6.9 (6.4-8.9) g/dL Albumin 4.4 (3.2-5.2) g/dL Globulin 2.5 (2-4) g/dL Albumin/Globulin Ratio 1.8 (1-3) Lipase 11 (11.0-82.0) U/L Result Diagrams: 01/12/18 20:35 01/12/18 20:35 Lab Statement: Any lab studies that have been ordered have been reviewed, and results considered in the medical decision making process. - CT CT abd/pel CT Interpretation: Positive (See Comments) CT Interpretation Completed By: Radiologist - Acute diverticulitis of the descending colon with mild pericolonic edema from infection. Mild hepatomegaly and steatosis. Mild nonspecific splenomegaly. Small hiatal hernia. Nodular nonspecific prostatomegaly. If clinically indicated recommend correlation with a PSA level. Moderate degenerative disc disease in the lower lumber spine. This report was reviewed by ED physician. GIGU Course/Dx - Course Assessment/Plan: Pt will be signed out to evening provider pending imaging results, dispo. - Diagnoses Differential Diagnoses - Male: Other - Stones v. Diverticulitis Provider Diagnoses: LLQ abdominal pain Discharge - Sign-Out/Discharge Documenting (check all that apply): Sign-Out Patient Signing out patient TO: Dez De Leon Receiving patient FROM: Mat Campo - Discharge Plan Condition: Good Disposition: HOME Patient Education Materials: Diverticulitis (ED) Forms: *Work Release Referrals: Demian Joe MD [Primary Care Provider] -
[2018-01-12] MEDS ORDERED: oxyCODONE/Acetamin 5/325 MG* TAB PO ONE (22:04)
[2018-01-12] MEDS ORDERED: NS 0.9% 1000 ML* 2,000 ML IV ONE (22:04)
[2018-01-12] MEDS ORDERED: Iodixanol* (CONTRAST) 320 MG/ML 100 ML SDV IV ONE (23:15)
[2018-01-13 01:36] LABS: Urine Appearance Clear; Urine Blood Negative (Negative); Urine Color Yellow; Urine Ketones Negative (Negative); Urine Protein 2+(100 mg/dL) (Negative); Urine Red Blood Cell Absent (Absent); Urine Urobilinogen Negative (Negative); Urine White Blood Cell Trace(0-5/hpf) (Absent)
[2018-01-13] MEDS ORDERED: cefTRIAXone(*) 1 GM in NS 0.9% 50 ML* 50 ML IVPB ONE (01:53)
[2018-01-13] MEDS ORDERED: metroNIDAZOLE IV 500 MG/100ML* 500 MG/100 ML BAG IVPB ONE (01:53)
[2018-01-13] MEDS ORDERED: Morphine ORAL.SOLN 10 mg* 2 MG/ML UDC 5 ml PO ONE (01:54)
--- NOTE | 2018-01-13 01:57 | ED ---
Progress - EKG/XRAY/CT CT: acute diverticulitis of the descending colon Course/Dx - Diagnoses Provider Diagnoses: LLQ abdominal pain Discharge - Sign-Out/Discharge Documenting (check all that apply): Patient Departure - Discharge Plan Condition: Good Disposition: HOME Prescriptions: metroNIDAZOLE [Flagyl 500 MG TAB] 500 mg PO TID #42 tab Morphine Sulfate 15 mg PO Q4HR PRN #20 tablet MDD 8 tabs PRN Reason: Pain Sulfamethox/Trimethoprim DS* [Bactrim DS 800/160 TAB*] 1 tab PO BID #28 tab Patient Education Materials: Diverticulitis (ED) Forms: *Work Release Referrals: Demian Joe MD [Primary Care Provider] - - Billing Disposition and Condition Condition: GOOD Disposition: Home
[2018-01-13 04:15] VITALS: BP 165/97
--- NOTE | 2018-01-13 08:14 | RAD ---
INDICATION: LEFT lower quadrant/flank pain. Negative for hematuria. COMPARISON: July 08, 2017 TECHNIQUE: Multidetector CT images were obtained from the lung bases to the ischial tuberosities with 100 mL Visipaque 320 IV and oral contrast. Multiplanar reformation. REPORT: Minimal dependent atelectasis at the lung bases. Unremarkable liver and gallbladder. 1.5 cm centrally hypodense lesion at the tail of the pancreas most consistent with a pseudocyst given evidence for acute pancreatitis on the July 08, 2017 exam. The current exam is negative for acute inflammatory change of the pancreas. Negative for pancreatic duct dilatation. Top normal 13.5 cm cephalocaudal spleen. There is an inflamed appendage of fat at the proximal descending colon consistent with appendagitis epiploica. No additional abnormality of the colon evident. Unremarkable RIGHT lateral extending appendix from the transverse lie cecum at the midline anterior lower abdomen. No CT abnormality of the small bowel loops or upper GI. Trace free fluid at the RIGHT paracolic gutter. Negative for free air or significant hernias. Normal adrenal glands. Unremarkable kidneys with symmetric nephrograms and pyelograms. No conspicuous urolithiasis. Negative for hydronephrosis. Unremarkable nondilated ureters and distended urinary bladder. Symmetric seminal vesicles. Negative for lymphadenopathy. Normal diameter abdominal aorta and iliac arteries. Physiologic distention of the IVC. Negative for suspicious osseous lesions. IMPRESSION: #. Appendagitis epiploica at the proximal descending colon. #. Negative for urolithiasis or hydronephrosis. #. 1.5 cm centrally hypodense lesion at the tail of the pancreas most consistent with a pseudocyst given evidence for acute pancreatitis on the July 08, 2017 exam. The current exam is negative for acute inflammatory change of the pancreas. As the finding is new and not entirely specific contrast-enhanced CT follow-up of the pancreatic lesion in 6 months time is suggested for reassessment.
== END 2018-01-13 04:14 | disposition home or self-care (01) ==
LOC: ED 19:16
DX: K57.32 Diverticulitis of large intestine without perforation or abscess without bleeding (principal); K76.0 Fatty (change of) liver, not elsewhere classified; R16.2 Hepatomegaly with splenomegaly, not elsewhere classified; K44.9 Diaphragmatic hernia without obstruction or gangrene; N40.0 Benign prostatic hyperplasia without lower urinary tract symptoms; M51.36 Other intervertebral disc degeneration, lumbar region; E11.9 Type 2 diabetes mellitus without complications; I10 Essential (primary) hypertension; Z88.0 Allergy status to penicillin
CPT/HCPCS: 36415; 74177; 80053; 81003; 81015; 83690; 85027; 87086; 96365; 96375; 99283; A9270-GY; J0696; J3490; Q9967

== ENCOUNTER 2018-01-14 12:18 | Emergency (ER) | payer BC ==
[2018-01-14] MEDS ORDERED: Ondansetron INJ* 2 MG/ML VIAL ONE (12:38)
[2018-01-14] MEDS ORDERED: NS 0.9% 1000 ML*IV.FLUID IV ONE (12:53)
[2018-01-14] MEDS ORDERED: Ondansetron INJ* 2 MG/ML VIAL IV ONE (13:04)
[2018-01-14 13:13] LABS: ABS Basophils 0.1 10^3/ul (0-0.2); ABS Eosinophils 0.2 10^3/ul (0-0.6); ABS Lymphocytes 1.3 10^3/ul (1.0-4.8); ABS Monocytes 0.9 10^3/ul (0-0.8); ABS Neutrophils 14.2 10^3/ul (1.5-7.7); ABS Nucleated RBC 0 10^3/ul; Eosinophil % 1.2 % (0-6); Hematocrit 41 % (42-52); Hemoglobin 13.8 g/dl (14.0-18.0); Lymphocyte % 7.5 % (25-47); Mean Corpuscular HGB Conc 34 g/dl (31-36); Mean Corpuscular Hemoglobin 29 pg (27-31); Mean Corpuscular Volume 85 fL (80-94); Mean Platelet Volume 8.1 um3 (7.4-10.4); Nucleated Red Blood Cells % 0.1; Platelet Count 506 10^3/ul (150-450); Red Blood Count 4.77 10^6/ul (4.00-5.40); Red Cell Distribution Width 15 % (10.5-15); White Blood Count 16.6 10^3/ul (3.5-10.8)
[2018-01-14 13:21] LABS: INR 0.94 (0.77-1.02)
[2018-01-14 13:28] LABS: EGFR Non-African American 53.4 (>60)
--- NOTE | 2018-01-14 13:33 | ED ---
Complex/Multi-Sys Presentation - HPI Summary HPI Summary: A 52 y/o male presents to the ED c/o nausea, vomiting and dizziness which pt attributes to starting Flagyl and Bactrim for dx diverticulitis in [facility] ED . Discharge dx was acute diverticulitis, but re-read of CT indicates epiploic appendagitis. Additionally c/o LUQ abdominal pain reaching 3/10 in severity. Currently, the patient is dry heaving and diaphoretic. According to the patient , he has been vomiting for the past two hours. As per twin brother, he was vomiting last night too. The color of the vomit was described as yellowish white. He stated that 3 hours after starting his prescribed antibiotics, he began to vomit. Pt denies any fever, diarrhea, CP, SOB, headache, leg pain or swelling, however has dizziness. He noted that he has not had a bowel movement since , 01/12/2018. He stated that he has been able to eat and had a PBJ at 1100 this morning and soup for dinner last night. It was noted that on , 01/12/2018, the patient was evaluated in the ED by Dr. Campo and signed out to Dr. De Leon final dx Diverticulitis on abd/pelvis CT with oral and IV contrast. He was given Bactrm and Flagyl po and DC'd home. In the room, the patient is tachycardic with a pulse of 115 BPM, blood pressure is 160/99 and O2 saturation of 96%. Allergies are Divalproex and Penicillin. PMHx of pancreatitis and colonoscopy (Dr. Mishra). Aditionally has mental health history of mood swings and depression. Pt still has gallbladder. No PMHx of major surgeries. Current medications include Humalog, Lantus, Metformin (Type II DM), Adderall (ADHD), Trifluoperazine (mood stabilizer). It was noted that the patient has not recently taken Tylenol (last known on 01/12/18) and is not on Hydrocodone, however is on Morphine and Dextran. Pt did not check blood sugar this morning. FHx of high blood pressure and heart disease. - History Of Current Complaint Chief Complaint: EDDizziness Time Seen by Provider: 01/14/18 12:27 Hx Obtained From: Patient, Family/Automotive Mechanic - Twin brotherNeeraj. Onset/Duration: Sudden Onset, Lasting Days - 01/12/2018, Still Present Timing: Constant Severity Currently: Mild - 3/10 Severity Initially: Mild - 3/10 Location: Pain At: - LUQ abd Character: Dull Aggravating Factor(s): NOTHING Alleviating Factor(s): NOTHING Associated Signs And Symptoms: Positive: Dizziness, Vomiting - yellowish white, Other - NEGATIVE: Leg pain or calf pain.. Negative: Headache, SOB, Chest Pain, Edema - LEGS, Diarrhea, Fever Related History: Other - NO PMHx of major surgeries, recent dx of diverticulitis. - Allergies/Home Medications Allergies/Adverse Reactions: Allergies Allergy/AdvReac Type Severity Reaction Status Date / Time divalproex sodium Allergy See Comment Verified 01/14/18 12:55 [From Depakote] Penicillins Allergy Airway Verified 01/14/18 12:55 Obstruction Home Medications: Home Medications Amphetamine MIXED SALTS TAB* [Adderall TAB*] 5 mg PO BID 01/14/18 [History Confirmed 01/14/18] PMH/Surg Hx/FS Hx/Imm Hx Previously Healthy: No Endocrine/Hematology History: Reports: Hx Diabetes Cardiovascular History: Reports: Hx Hypercholesterolemia, Hx Hypertension Respiratory History: Denies: Hx Chronic Obstructive Pulmonary Disease (COPD) GI History: Denies: Hx Cirrhosis History: Denies: Hx Acute Renal Failure, Hx Renal Disease Musculoskeletal History: Denies: Hx Arthritis Sensory History: Reports: Hx Contacts or Glasses Denies: Hx Hearing Aid Opthamlomology History: Reports: Hx Contacts or Glasses Neurological History: Denies: Hx CVA, Hx Dementia Psychiatric History: Reports: Hx Depression, Hx Bipolar Disorder - Surgical History Surgery Procedure, Year, and Place: none Infectious Disease History: No Infectious Disease History: Denies: Traveled Outside the [place] in Last 30 Days - Family History Known Family History: Positive: Cardiac Disease, Hypertension - Social History Alcohol Use: Occasionally Substance Use Type: Reports: None Smoking Status (MU): Never Smoked Tobacco Review of Systems Negative: Fever Negative: Chest Pain Negative: Shortness Of Breath Positive: Abdominal Pain - LUQ, Vomiting - Yellowish white. Negative: Diarrhea Positive: no symptoms reported Positive: Other - NEGATIVE: Leg pain. Negative: Edema - NEGATIVE: Leg Neurological: Other - POSITIVE: Dizziness Negative: Headache Psychological: Normal All Other Systems Reviewed And Are Negative: Yes Physical Exam - Summary Physical Exam Summary: Appearance: ill-appearing, moderate pain distress, well-nourished, obese, dry heaving Skin: Warm, color reflects adequate perfusion, diaphoretic Head: Normal Head/Face inspection, atraumatic Eyes: Conjunctiva clear ENT: Normal inspection Neck: Supple, no nodes, no JVD Respiratory: Lungs clear, normal breath sounds, no respiratory distress Cardio: RRR, No murmur, pulses normal, brisk capillary refill Abdomen: Soft, tender LUQ, no masses, no guarding, no rebound. Bowel sounds: Present Musculoskeletal: Strength Intact/ROM intact, no calf tenderness, no edema. Psychological: Normal Neuro: Alert, muscle tone normal, no focal deficit Triage Information Reviewed: Yes Vital Signs On Initial Exam: Initial Vitals Temp Pulse Resp BP Pulse Ox 97.6 F 120 14 124/76 95 01/14/18 12:20 01/14/18 12:20 01/14/18 12:20 01/14/18 12:20 01/14/18 12:20 Vital Signs Reviewed: Yes Diagnostics - Vital Signs Vital Signs Temp Pulse Resp BP Pulse Ox 01/14/18 12:53 95 01/14/18 12:43 103 15 160/99 93 01/14/18 12:39 107 19 160/99 96 01/14/18 12:38 116 25 157/118 96 01/14/18 12:31 109 22 96 01/14/18 12:20 97.6 F 120 14 124/76 95 - Laboratory Lab Results: Lab Results 01/14/18 01/14/18 01/14/18 Range/Units 12:43 12:43 12:43 WBC 16.6 H (3.5-10.8) 10^3/ul RBC 4.77 (4.00-5.40) 10^6/ul Hgb 13.8 L (14.0-18.0) g/dl Hct 41 L (42-52) % MCV 85 (80-94) fL MCH 29 (27-31) pg MCHC 34 (31-36) g/dl RDW 15 (10.5-15) % Plt Count 506 H D (150-450) 10^3/ul MPV 8.1 (7.4-10.4) um3 Neut % (Auto) 85.5 H (38-83) % Lymph % (Auto) 7.5 L (25-47) % [place] % (Auto) 5.1 (0-7) % Eos % (Auto) 1.2 (0-6) % Baso % (Auto) 0.7 (0-2) % Absolute Neuts (auto) 14.2 H (1.5-7.7) 10^3/ul Absolute Lymphs (auto) 1.3 (1.0-4.8) 10^3/ul Absolute Monos (auto) 0.9 H (0-0.8) 10^3/ul Absolute Eos (auto) 0.2 (0-0.6) 10^3/ul Absolute Basos (auto) 0.1 (0-0.2) 10^3/ul Absolute Nucleated RBC 0 10^3/ul Nucleated RBC % 0.1 ESR Pending INR (Anticoag Therapy) 0.94 (0.77-1.02) APTT 30.5 (26.0-36.3) seconds Sodium 142 (135-145) mmol/L Potassium 3.3 L (3.5-5.0) mmol/L Chloride 105 (101-111) mmol/L Carbon Dioxide 25 (22-32) mmol/L Anion Gap 12 H (2-11) mmol/L BUN 21 (6-24) mg/dL Creatinine 1.40 H (0.67-1.17) mg/dL Est GFR ( Amer) 64.6 (>60) Est GFR (Non-Af Amer) 53.4 (>60) BUN/Creatinine Ratio 15.0 (8-20) Glucose 148 H (70-100) mg/dL POC Glucose (mg/dL) (70-100) mg/dL Lactic Acid (0.5-2.0) mmol/L Calcium 9.6 (8.6-10.3) mg/dL Total Bilirubin 0.40 (0.2-1.0) mg/dL AST 12 L (13-39) U/L ALT 22 (7-52) U/L Alkaline Phosphatase 108 H (34-104) U/L Total Creatine Kinase 60 (10-223) U/L Troponin I 0.02 (<0.04) ng/mL C-Reactive Protein 64.22 H (<8.01) mg/L Total Protein 7.3 (6.4-8.9) g/dL Albumin 4.5 (3.2-5.2) g/dL Globulin 2.8 (2-4) g/dL Albumin/Globulin Ratio 1.6 (1-3) Amylase 40 (29-103) U/L Lipase < 10 L (11.0-82.0) U/L 01/14/18 01/14/18 Range/Units 12:43 12:55 WBC (3.5-10.8) 10^3/ul RBC (4.00-5.40) 10^6/ul Hgb (14.0-18.0) g/dl Hct (42-52) % MCV (80-94) fL MCH (27-31) pg MCHC (31-36) g/dl RDW (10.5-15) % Plt Count (150-450) 10^3/ul MPV (7.4-10.4) um3 Neut % (Auto) (38-83) % Lymph % (Auto) (25-47) % [place] % (Auto) (0-7) % Eos % (Auto) (0-6) % Baso % (Auto) (0-2) % Absolute Neuts (auto) (1.5-7.7) 10^3/ul Absolute Lymphs (auto) (1.0-4.8) 10^3/ul Absolute Monos (auto) (0-0.8) 10^3/ul Absolute Eos (auto) (0-0.6) 10^3/ul Absolute Basos (auto) (0-0.2) 10^3/ul Absolute Nucleated RBC 10^3/ul Nucleated RBC % ESR INR (Anticoag Therapy) (0.77-1.02) APTT (26.0-36.3) seconds Sodium (135-145) mmol/L Potassium (3.5-5.0) mmol/L Chloride (101-111) mmol/L Carbon Dioxide (22-32) mmol/L Anion Gap (2-11) mmol/L BUN (6-24) mg/dL Creatinine (0.67-1.17) mg/dL Est GFR ( Amer) (>60) Est GFR (Non-Af Amer) (>60) BUN/Creatinine Ratio (8-20) Glucose (70-100) mg/dL POC Glucose (mg/dL) 155 H (70-100) mg/dL Lactic Acid 2.0 (0.5-2.0) mmol/L Calcium (8.6-10.3) mg/dL Total Bilirubin (0.2-1.0) mg/dL AST (13-39) U/L ALT (7-52) U/L Alkaline Phosphatase (34-104) U/L Total Creatine Kinase (10-223) U/L Troponin I (<0.04) ng/mL C-Reactive Protein (<8.01) mg/L Total Protein (6.4-8.9) g/dL Albumin (3.2-5.2) g/dL Globulin (2-4) g/dL Albumin/Globulin Ratio (1-3) Amylase (29-103) U/L Lipase (11.0-82.0) U/L Result Diagrams: 01/14/18 12:43 01/14/18 12:43 Lab Statement: Any lab studies that have been ordered have been reviewed, and results considered in the medical decision making process. - EKG 1303 Cardiac Rate: Tachycardia - 100 BPM EKG Rhythm: Sinus Tachycardia ST Segment: Non-Specific Ectopy: None EKG Interpretation: normal KI CT, normal QTc, normal axis EKG Comparison: No Significant Change - 07/07/2017. Re-Evaluation - Re-Evaluation First Eval Re-Evaluation Time: 16:55 Change: Improved Comment: Patient has no pain or vomiting. Complex Multi-Symp Course/Dx Course Of Treatment: A 52 y/o male presents to the ED c/o nausea, vomiting and dizziness s/p starting flagyl and Bactrim for diverticulitis, that on re-read of CT scan is now epiploic appendagitis, poss pancreatic pseudocyst. Additionally c/o LUQ abdominal pain reaching 3/10 in severity. An EKG revealed sinus tachycardia with a rate of 100 BPM, normal KI CT, normal QTc, normal axis. Care was discussed with Dr. Badillo who did not recommend further imaging of poss pancreatic pseudocyst at this time, states pt's major sxs at this time are consistent with epiploic appendagitis, which does not have to be treated with antibiotics, can be treated with anit-inflammatory medication alone. Pt with normal amylase and lipase. Wbc count is slightly increased since 01/12/18. In the ED course, patient recieved Zofran and IV fluids which improved his symptoms. Reevaluation at 1655 revealed the patient symptoms improved. Patient had no pain or vomiting. Patient will be discharged with a diagnosis of abdominal pain, vomiting, medication side effect and appendagitis epiploica. Pt medications reviewed this visit. Follow up with PCP, Heath, in 2 days. - Diagnoses Provider Diagnoses: Abdominal pain, Vomiting, Medication side effect, Epiploic appendagitis - Physician Notifications Discussed Care Of Patient With: James Badillo - further imaging not necessary at this time Time Discussed With Above Provider: 15:45 Discharge - Sign-Out/Discharge Documenting (check all that apply): Patient Departure - DISCHARGE - Discharge Plan Condition: Stable Disposition: HOME Prescriptions: Ibuprofen TAB* [Motrin TAB* 600 MG] 600 mg PO Q8H #30 tab Ondansetron ODT TAB* [Zofran 4 MG Odt TAB*] 4 mg PO Q8H PRN #15 tab.odt PRN Reason: Nausea Patient Education Materials: Acute Nausea and Vomiting (ED), Abdominal Pain (ED ) Referrals: Demian Joe MD [Primary Care Provider] - 2 Days Additional Instructions: You diagnosis on the CT scan on 01/12/18 was epiploic appendagitis. You also had a very small cyst on your pancreas that needs definite follow up CT in 6 months. We have given you a copy of the CT from 01/12/18. You labs were not more abnormal. We think that your vomiting is a side effect of the antibiotics. You may stop the Bactrim and the metronidazole. The epiploic appendagitis can be treated with just anti-inflammatory medication. We recommend that you take ibuprofen 600mg three times a day around the clock (not just as needed) for 10 days with food. You may take this with ondansetron oral disintegrating tabs if you are nauseous. We sent these prescriptions to [facility] pharmacy. You should stop naproxen while you are taking the ibuprofen. Have definite follow up with Dr. Joe in 2-3 days. Return to the ER if you have new or worsening symptoms. - Billing Disposition and Condition Condition: STABLE Disposition: Home
[2018-01-14 15:49] LABS: Urine Appearance Clear; Urine Blood Negative (Negative); Urine Color Yellow; Urine Ketones Negative (Negative); Urine Protein 1+(30 mg/dL) (Negative); Urine Red Blood Cell Trace(0-2/hpf) (Absent); Urine Urobilinogen Negative (Negative); Urine White Blood Cell Trace(0-5/hpf) (Absent)
[2018-01-14 17:12] VITALS: BP 157/94
== END 2018-01-14 17:21 | disposition home or self-care (01) ==
LOC: ED 12:18
DX: R10.12 Left upper quadrant pain (principal); R11.2 Nausea with vomiting, unspecified; T36.95XA Adverse effect of unspecified systemic antibiotic, initial encounter; K63.89 Other specified diseases of intestine; E11.9 Type 2 diabetes mellitus without complications; F90.9 Attention-deficit hyperactivity disorder, unspecified type; R00.0 Tachycardia, unspecified; Z87.19 Personal history of other diseases of the digestive system; Z88.8 Allergy status to other drugs, medicaments and biological substances; Z79.4 Long term (current) use of insulin; Z79.84 Long term (current) use of oral hypoglycemic drugs; Z88.0 Allergy status to penicillin
CPT/HCPCS: 36415; 80053; 81003; 81015; 82150; 82550; 83605; 83690; 83880; 84484; 85025; 85610; 85652; 85730; 86140; 87040; 87086; 93005; 96361; 96374; 99285; J2405